=== PATIENT | female | born 1950 | race Caucasian/White ===

== ENCOUNTER → 2017-10-04 20:08 | Outpatient (CLI) | payer MEDICARE, SELFPAY | DX: G47.30 Sleep apnea, unspecified (principal) | CPT/HCPCS: 95811 ==

== ENCOUNTER → 2018-01-20 09:33 | Outpatient (CLI) | payer MEDICARE, SELFPAY ==
[2018-01-20 12:19] LABS: Erythrocyte Sedimentation Rate 14 mm/hr (0-30)
[2018-01-20 12:25] LABS: Absolute Lymphocyte Count 1.16 X10^3/ul (0.83-4.51); Absolute Neutrophil Count 2.6 X10^3/uL (2.0-7.7); Basophil# 0.04 X10^3/uL; Basophil% 0.9 % (0-1); Eosinophil# 0.18 X10^3/uL; Eosinophils% 4.2 % (0-5); Hematocrit 44.3 % (37-47); Hemoglobin 14.1 g/dl (12.0-15.0); Lymphocyte # 1.16 X10^3/ul (4.0); Lymphocyte % 27.3 % (19-41); Mean Corp Hgb Conc 31.8 g/gl (32-36); Mean Corpuscular Hgb 30.1 pg (27.0-32.0); Mean Corpuscular Volume 94.5 fL (81-99); Mean Platelet Vol. 10.9 fl (6.2-12.0); Monocyte# 0.25 X10^3/uL; Monocyte% 5.9 % (0-10); Neutrophil # 2.62 X10^3/uL (2.7-7.7); Neutrophil % 61.7 % (47-70); Platelet Count 210 K/mm3 (150-450); RBC Distribution Width CV 13.4 % (11.6-14.6); Red Blood Count 4.69 M/mm3 (4.2-5.4); White Blood Count 4.3 K/mm3 (4.4-11.0)
[2018-01-20 12:30] LABS: POSITIVE COUNT NO; POSITIVE DIFFERENTIAL NO; POSITIVE MORPHOLOGY NO
[2018-01-20 12:33] LABS: Hemoglobin A1c 5.8 % (4.2-6.3)
[2018-01-20 12:43] LABS: ALB/GLOB Ratio 1.1 RATIO (0.9-2.4); AST(SGOT) 42 U/L (15-37); Alanine Aminotransfer ALT/SGPT 56 U/L (13-56); Albumin, Serum 3.9 g/dL (3.2-5.0); Alkaline Phosphatase 98 U/L (45-117); Anion Gap 10 (5-15); BUN 21 mg/dL (7-18); BUN/Creat Ratio 28.2 RATIO (10-20); Calcium,Total 8.9 mg/dL (8.5-10.1); Chloride 105 mmol/L (98-107); Cholesterol 238 mg/dL (200); Creatinine, Serum 0.74 mg/dL (0.55-1.02); EST Glomerular Filtration Rate 82 mL/min (>60); Est Glom Filt Rate - Afr Amer 99 mL/min (>60); Globulin 3.5 g/dL (2.2-4.2); Glucose 99 mg/dL (74-106); High Density Lipoprotein 74 mg/dL; Phosphorus 3.8 mg/dL (2.5-4.9); Protein, Total 7.4 g/dL (6.4-8.2); Rheumatoid Factor < 10.0 IU/mL (<15); Sodium Level 143 mmol/L (136-145); Triglycerides 151 mg/dL; Very Low Density Lipoprotein 30 mg/dL (5-40)
[2018-01-21 10:19] LABS: Vitamin D,25 Hydroxy 32.8 ng/mL (29.95-100.01)
[2018-01-22 13:18] LABS: ANTINUCLEAR ANTIBODIES DIRECT Negative (Negative)
== END ==
PROVIDERS: Family Provider Family Medicine; PCP Family Medicine; Visit Provider Family Medicine
DX: M25.50 Pain in unspecified joint (principal); E78.5 Hyperlipidemia, unspecified; M85.80 Other specified disorders of bone density and structure, unspecified site; R73.02 Impaired glucose tolerance (oral)
CPT/HCPCS: 80053; 80061; 82306; 83036; 84100; 85025; 85652; 86038; 86431

== ENCOUNTER → 2018-02-25 13:55 | Outpatient (CLI) | payer MEDICARE, SELFPAY ==
[2018-02-25 16:10] LABS: ALB/GLOB Ratio 1.1 RATIO (0.9-2.4); AST(SGOT) 21 U/L (15-37); Alanine Aminotransfer ALT/SGPT 29 U/L (13-56); Albumin, Serum 3.9 g/dL (3.2-5.0); Alkaline Phosphatase 97 U/L (45-117); Anion Gap 10 (5-15); BUN 20 mg/dL (7-18); BUN/Creat Ratio 28.8 RATIO (10-20); Calcium,Total 8.9 mg/dL (8.5-10.1); Chloride 107 mmol/L (98-107); Creatinine, Serum 0.69 mg/dL (0.55-1.02); EST Glomerular Filtration Rate 89 mL/min (>60); Est Glom Filt Rate - Afr Amer 108 mL/min (>60); Globulin 3.5 g/dL (2.2-4.2); Glucose 97 mg/dL (74-106); Protein, Total 7.4 g/dL (6.4-8.2); Sodium Level 141 mmol/L (136-145)
[2018-02-27 13:33] LABS: HEPATITIS B SURFACE AG Negative (Negative); Hep B Surface Antibodies Reactive (.); Hep C Antibodies 0.3 s/co ratio (0.0-0.9)
== END ==
PROVIDERS: Family Provider Family Medicine; PCP Family Medicine; Visit Provider Family Medicine
DX: R94.5 Abnormal results of liver function studies (principal)
CPT/HCPCS: 36415; 80053; 86706; 86803; 87340

== ENCOUNTER → 2018-03-23 14:35 | Outpatient (CLI) | payer MEDICARE, SELFPAY ==
--- NOTE | 2018-03-23 14:39 | BI_ITS ---
MAMMOGRAPHY - BILATERAL SCREENING REASON FOR EXAM: Female, 67 years old. Routine annual screening examination. PERTINENT HISTORY: Sister with breast cancer. Grandmother with breast cancer. Remote right excisional breast biopsies. TECHNIQUE: Digital bilateral breast franki (3D mammographic acquisition) in the CC and MLO projections. 2-D mediolateral oblique (MLO) and craniocaudad (CC) views of both breasts were obtained. CAD: Full Field Digital Mammography with Computer Added Detection was performed. COMPARISON: Comparison is made with prior outside examination February 10, 2017. FINDINGS: Breast Composition: The breasts are heterogeneously dense, which may obscure small masses. There are no dominant masses or suspicious calcifications. Stable bilateral calcifications. No other significant abnormalities are identified. There has been no significant change since the prior study. BI/SCREENING MAMM (CAD), BILAT IMPRESSION: Stable bilateral screening mammogram. Yearly follow-up mammogram recommended. (A) ASSESSMENT CATEGORY: BIRADS Category 2: Benign. A letter regarding these results will be sent to the patient by the facility within 30 days. Approximately 10% of breast cancers are not detected by mammography. A normal mammogram should not delay biopsy of a clinically suspicious abnormality. [id number] Electronically Signed: Ryan Crockett MD at 12:51 EDT Tel [phone], Service support ,
== END ==
PROVIDERS: Family Provider Family Medicine; PCP Family Medicine; Referring Provider Family Medicine; Visit Provider Family Medicine
DX: Z12.31 Encounter for screening mammogram for malignant neoplasm of breast (principal)
CPT/HCPCS: 77063; 77067

== ENCOUNTER → 2018-03-25 13:58 | Outpatient (CLI) | payer MEDICARE, SELFPAY ==
[2018-03-25 16:43] LABS: Rubella IgG > 500.0 IU/mL
[2018-03-29 08:35] LABS: Mumps Antibody,IgG 54.4 AU/mL (Immune >10.9); Rubeola IgG Ab > 300.0 AU/mL (Immune >29.9)
== END ==
PROVIDERS: Family Provider Family Medicine; PCP Family Medicine; Visit Provider Family Medicine
DX: Z01.84 Encounter for antibody response examination (principal)
CPT/HCPCS: 36415; 86735; 86762; 86765

== ENCOUNTER → 2018-06-24 13:41 | Outpatient (CLI) | payer MEDICARE, SELFPAY ==
[2018-06-24 16:32] LABS: ALB/GLOB Ratio 1.1 RATIO (0.9-2.4); AST(SGOT) 27 U/L (15-37); Alanine Aminotransfer ALT/SGPT 40 U/L (13-56); Albumin, Serum 3.9 g/dL (3.2-5.0); Alkaline Phosphatase 119 U/L (45-117); Anion Gap 10 (5-15); BUN 21 mg/dL (7-18); BUN/Creat Ratio 29.3 RATIO (10-20); Calcium,Total 8.7 mg/dL (8.5-10.1); Chloride 106 mmol/L (98-107); Cholesterol 237 mg/dL (200); Creatinine, Serum 0.72 mg/dL (0.55-1.02); EST Glomerular Filtration Rate 86 mL/min (>60); Est Glom Filt Rate - Afr Amer 104 mL/min (>60); Globulin 3.4 g/dL (2.2-4.2); Glucose 126 mg/dL (74-106); High Density Lipoprotein 58 mg/dL; Potassium 3.9 mmol/L (3.5-5.1); Protein, Total 7.3 g/dL (6.4-8.2); Sodium Level 142 mmol/L (136-145); Triglycerides 441 mg/dL
[2018-06-24 16:41] LABS: Vitamin D,25 Hydroxy 23.3 ng/mL (29.95-100.01)
[2018-06-24 17:15] LABS: Hemoglobin A1c 6.1 % (4.2-6.3)
== END ==
PROVIDERS: Family Provider Family Medicine; PCP Family Medicine; Visit Provider Family Medicine
DX: E78.5 Hyperlipidemia, unspecified (principal); R73.02 Impaired glucose tolerance (oral); M85.80 Other specified disorders of bone density and structure, unspecified site
CPT/HCPCS: 36415; 80053; 80061; 82306; 83036

== ENCOUNTER → 2018-08-16 10:45 | Outpatient (CLI) | payer MEDICARE, SELFPAY ==
--- NOTE | 2018-08-16 10:57 | BD_ITS ---
STUDY: DUAL ENERGY X-RAY ABSORPTIOMETRY / DXA REASON FOR EXAM: Female, 67 years old. Early menopause. Loss of height. TECHNIQUE: Bone Mineral Density (BMD) measurements of lumbar spine and bilateral hips were obtained. COMPARISON: None. FINDINGS: Lumbar Spine (L1-L4): g/cm2 (0.890) / T-score (-2.4) / Z-score (-0.8) Findings are suggestive of osteopenia with a high fracture risk. Left Femur Total: g/cm2 (0.942) / T-score ( -0.5) / Z-score (0.9) Left Femoral Neck: g/cm2 (0.906) / T-score (-0.9) / Z-score (0.7) Right Femur Total: g/cm2 (0.918) / T-score (-0.7) / Z-score (0.7) Right Femoral Neck: g/cm2 (0.858) / T-score (-1.3) / Z-score (0.4) BD/Dexa Bone Density Study IMPRESSION: The patient is considered osteopenic as outlined below according to World Neeraj Organization (WHO) criteria with a high fracture risk. Reference Information: The T-score is the number of standard deviations above or below the standard which is normal for young adults at their peak bone mineral density. The World Health Organization (WHO) interprets the T-scores as follows: Above -1 Normal bone density Between -1 and -2.5 Osteopenia Equal to / or below -2.5 Osteoporosis As a practical clinical guideline, osteopenia may be graded as follows: Mild -1 through -1.5 Moderate -1.6 through -2.0 Severe -2.1 through -2.4 The Z-score is the number of standard deviations above or below age-matched controls. A Z-score of less than -1.5 would be considered abnormal. References: 1. NIH Osteoporosis and Related Bone Diseases http://www.osteo.org 2. International Society for Clinical Densitometry http://www.iscd.org 3. National Osteoporosis Foundation http://www.nof.org Electronically Signed: Ryan Crockett, at 11:05 EST , Service support ,
== END ==
PROVIDERS: Family Provider Family Medicine; PCP Family Medicine; Referring Provider Family Medicine; Visit Provider Family Medicine
DX: Z78.0 Asymptomatic menopausal state (principal); Z13.820 Encounter for screening for osteoporosis
CPT/HCPCS: 77080

== ENCOUNTER → 2018-11-21 | Outpatient (CLI) | payer MEDICARE, SELFPAY ==
[2018-11-21 17:52] LABS: ALB/GLOB Ratio 1.1 RATIO (0.9-2.4); AST(SGOT) 22 U/L (15-37); Alanine Aminotransfer ALT/SGPT 24 U/L (13-56); Albumin, Serum 3.7 g/dL (3.2-5.0); Alkaline Phosphatase 84 U/L (45-117); Anion Gap 9 (5-15); BUN 19 mg/dL (7-18); BUN/Creat Ratio 27.3 RATIO (10-20); Calcium,Total 8.5 mg/dL (8.5-10.1); Chloride 109 mmol/L (98-107); EST Glomerular Filtration Rate 88 mL/min (>60); Est Glom Filt Rate - Afr Amer 107 mL/min (>60); Globulin 3.4 g/dL (2.2-4.2); Glucose 95 mg/dL (74-106); Phosphorus 3.7 mg/dL (2.5-4.9); Potassium 4.1 mmol/L (3.5-5.1); Protein, Total 7.1 g/dL (6.4-8.2); Sodium Level 143 mmol/L (136-145)
[2018-11-21 18:44] LABS: Hemoglobin A1c 5.6 % (4.2-6.3)
== END | disposition home or self-care (01) ==
PROVIDERS: Family Provider Family Medicine; PCP Family Medicine; Visit Provider Family Medicine
DX: R73.02 Impaired glucose tolerance (oral) (principal); E55.9 Vitamin D deficiency, unspecified; M85.80 Other specified disorders of bone density and structure, unspecified site
CPT/HCPCS: 36415; 80053; 80061; 82306; 83036; 84100

== ENCOUNTER → 2019-03-03 10:08 | Outpatient (CLI) | payer MEDICARE, SELFPAY ==
[2019-03-03 12:58] LABS: ALB/GLOB Ratio 1.1 RATIO (0.9-2.4); AST(SGOT) 22 U/L (15-37); Alanine Aminotransfer ALT/SGPT 27 U/L (13-56); Albumin, Serum 3.7 g/dL (3.2-5.0); Alkaline Phosphatase 95 U/L (45-117); Anion Gap 3 (5-15); BUN 18 mg/dL (7-18); BUN/Creat Ratio 26.1 RATIO (10-20); Calcium,Total 8.7 mg/dL (8.5-10.1); Chloride 111 mmol/L (98-107); Cholesterol 211 mg/dL (200); Creatinine, Serum 0.69 mg/dL (0.55-1.02); EST Glomerular Filtration Rate 89 mL/min (>60); Est Glom Filt Rate - Afr Amer 108 mL/min (>60); Globulin 3.4 g/dL (2.2-4.2); Glucose 100 mg/dL (74-106); High Density Lipoprotein 77 mg/dL; Potassium 4.2 mmol/L (3.5-5.1); Protein, Total 7.1 g/dL (6.4-8.2); Sodium Level 141 mmol/L (136-145); Triglycerides 109 mg/dL; Very Low Density Lipoprotein 22 mg/dL (5-40)
[2019-03-03 13:10] LABS: Hemoglobin A1c 5.5 % (4.2-6.3)
[2019-03-03 13:19] LABS: Vitamin D,25 Hydroxy 35.6 ng/mL (29.95-100.01)
== END ==
PROVIDERS: Family Provider Family Medicine; PCP Family Medicine; Referring Provider Family Medicine; Visit Provider Family Medicine
DX: R73.02 Impaired glucose tolerance (oral) (principal); E55.9 Vitamin D deficiency, unspecified; M85.80 Other specified disorders of bone density and structure, unspecified site; E78.1 Pure hyperglyceridemia
CPT/HCPCS: 36415; 80053; 80061; 82306; 83036

== ENCOUNTER → 2019-03-24 14:33 | Outpatient (CLI) | payer MEDICARE, SELFPAY ==
--- NOTE | 2019-03-24 14:36 | BI_ITS ---
MAMMOGRAPHY - BILATERAL SCREENING REASON FOR EXAM: Female, 68 years old. Routine annual screening examination. PERTINENT HISTORY: Sister with breast cancer. Grandmother with breast cancer. TECHNIQUE: Digital bilateral breast tommy (3D mammographic acquisition) in the CC and MLO projections. 2-D mediolateral oblique (MLO) and craniocaudad (CC) views of both breasts were obtained. CAD: Full Field Digital Mammography with Computer Added Detection was performed. COMPARISON: Comparison is made with prior study March 23, 2018. FINDINGS: Breast Composition: The breasts are heterogeneously dense, which may obscure small masses. There are no dominant masses or suspicious calcifications. Stable scattered calcifications bilaterally. No other significant abnormalities are identified. There has been no significant change since the prior study. BI/SCREEN MAMM (CAD) W/TOMMY BILAT IMPRESSION: Stable bilateral screening mammogram. Yearly follow-up mammogram recommended. (A) ASSESSMENT CATEGORY: BIRADS Category 2: Benign. A letter regarding these results will be sent to the patient by the facility within 30 days. Approximately 10% of breast cancers are not detected by mammography. A normal mammogram should not delay biopsy of a clinically suspicious abnormality. [id number] Electronically Signed: Ryan Crockett, at 15:37 EDT , Service support ,
== END ==
PROVIDERS: Family Provider Family Medicine; PCP Family Medicine; Referring Provider Family Medicine; Visit Provider Family Medicine
DX: Z12.31 Encounter for screening mammogram for malignant neoplasm of breast (principal)
CPT/HCPCS: 77063; 77067

== ENCOUNTER → 2019-06-30 09:25 | Outpatient (CLI) | payer MEDICARE, SELFPAY ==
[2019-06-30 11:01] LABS: ALB/GLOB Ratio 1.3 RATIO (0.9-2.4); AST(SGOT) 22 U/L (15-37); Alanine Aminotransfer ALT/SGPT 25 U/L (13-56); Albumin, Serum 3.9 g/dL (3.2-5.0); Alkaline Phosphatase 99 U/L (45-117); Anion Gap 5 (5-15); BUN 23 mg/dL (7-18); BUN/Creat Ratio 33.8 RATIO (10-20); Calcium,Total 9.3 mg/dL (8.5-10.1); Chloride 109 mmol/L (98-107); Creatinine, Serum 0.68 mg/dL (0.55-1.02); EST Glomerular Filtration Rate 91 mL/min (>60); Est Glom Filt Rate - Afr Amer 110 mL/min (>60); Globulin 3.1 g/dL (2.2-4.2); Glucose 97 mg/dL (74-106); Potassium 4.2 mmol/L (3.5-5.1); Sodium Level 141 mmol/L (136-145)
[2019-06-30 11:05] LABS: Hemoglobin A1c 5.8 % (4.2-6.3)
== END ==
PROVIDERS: Family Provider Family Medicine; PCP Family Medicine; Referring Provider Family Medicine; Visit Provider Family Medicine
DX: R73.02 Impaired glucose tolerance (oral) (principal)
CPT/HCPCS: 36415; 80053; 83036

== ENCOUNTER → 2020-03-19 08:28 | Outpatient (CLI) | payer MEDICARE, SELFPAY ==
[2020-03-19 10:43] LABS: ALB/GLOB Ratio 1.1 RATIO (0.9-2.4); AST(SGOT) 19 U/L (15-37); Alanine Aminotransfer ALT/SGPT 23 U/L (13-56); Albumin, Serum 3.7 g/dL (3.2-5.0); Alkaline Phosphatase 100 U/L (45-117); Anion Gap 4 (5-15); BUN 20 mg/dL (7-18); BUN/Creat Ratio 25.1 RATIO (10-20); Calcium,Total 8.7 mg/dL (8.5-10.1); Chloride 110 mmol/L (98-107); EST Glomerular Filtration Rate 75 mL/min (>60); Est Glom Filt Rate - Afr Amer 91 mL/min (>60); Globulin 3.5 g/dL (2.2-4.2); Glucose 102 mg/dL (74-106); Protein, Total 7.2 g/dL (6.4-8.2); Sodium Level 141 mmol/L (136-145)
[2020-03-19 10:46] LABS: Vitamin D,25 Hydroxy 68.3 ng/mL
[2020-03-19 10:48] LABS: Hemoglobin A1c 5.6 % (3.8-5.6)
== END ==
PROVIDERS: PCP Family Medicine; Referring Provider Family Medicine; Visit Provider Family Medicine
DX: M85.80 Other specified disorders of bone density and structure, unspecified site (principal); R73.02 Impaired glucose tolerance (oral)
CPT/HCPCS: 36415; 80053; 82306; 83036; 84100

== ENCOUNTER → 2020-04-29 11:19 | Outpatient (CLI) | payer MEDICARE, SELFPAY ==
--- NOTE | 2020-04-29 11:21 | BI_ITS ---
MAMMOGRAPHY - BILATERAL SCREENING REASON FOR EXAM: Female, 69 years old. Routine annual screening examination. PERTINENT HISTORY: Sister with breast cancer. Grandmother with breast cancer. Remote right excisional breast biopsy. TECHNIQUE: Digital bilateral breast tommy (3D mammographic acquisition) in the CC and MLO projections. 2-D mediolateral oblique (MLO) and craniocaudad (CC) views of both breasts were obtained. CAD: Full Field Digital Mammography with Computer Added Detection was performed. COMPARISON: Comparison is made with prior examination dated 03/24/2019 and 03/23/2018. FINDINGS: Breast Composition: The breasts are heterogeneously dense, which may obscure small masses. There are no dominant masses or suspicious calcifications. Stable scattered bilateral calcifications. No other significant abnormalities are identified. There has been no significant change since the prior study. BI/SCREEN MAMM (CAD) W/TOMMY BILAT IMPRESSION: Stable bilateral screening mammogram. Yearly follow-up mammogram recommended. (A) ASSESSMENT CATEGORY: BIRADS Category 2: Benign. A letter regarding these results will be sent to the patient by the facility within 30 days. Approximately 10% of breast cancers are not detected by mammography. A normal mammogram should not delay biopsy of a clinically suspicious abnormality. [id number] Electronically Signed: Ryan Crockett, at 15:43 EST , Service support ,
== END ==
PROVIDERS: PCP Family Medicine; Referring Provider Family Medicine; Visit Provider Family Medicine
DX: Z12.31 Encounter for screening mammogram for malignant neoplasm of breast (principal); Z80.3 Family history of malignant neoplasm of breast
CPT/HCPCS: 77063; 77067

== ENCOUNTER → 2020-09-19 08:24 | Outpatient (CLI) | payer MEDICARE, SELFPAY ==
[2020-09-19 10:42] LABS: Hemoglobin A1c 5.6 % (3.8-5.6)
[2020-09-19 10:45] LABS: Vitamin D,25 Hydroxy 42.4 ng/mL
[2020-09-19 10:46] LABS: ALB/GLOB Ratio 1.2 RATIO (0.9-2.4); AST(SGOT) 22 U/L (15-37); Alanine Aminotransfer ALT/SGPT 22 U/L (13-56); Albumin, Serum 3.9 g/dL (3.2-5.0); Alkaline Phosphatase 94 U/L (45-117); Anion Gap 7 (5-15); BUN 18 mg/dL (7-18); Calcium,Total 8.9 mg/dL (8.5-10.1); Chloride 106 mmol/L (98-107); Cholesterol 204 mg/dL (200); Creatinine, Serum 0.75 mg/dL (0.55-1.02); EST Glomerular Filtration Rate 81 mL/min (>60); Est Glom Filt Rate - Afr Amer 98 mL/min (>60); Globulin 3.2 g/dL (2.2-4.2); Glucose 95 mg/dL (74-106); High Density Lipoprotein 86 mg/dL; Potassium 3.7 mmol/L (3.5-5.1); Protein, Total 7.1 g/dL (6.4-8.2); Sodium Level 142 mmol/L (136-145); Triglycerides 104 mg/dL; Very Low Density Lipoprotein 21 mg/dL (5-40)
== END ==
PROVIDERS: PCP Family Medicine; Referring Provider Family Medicine; Visit Provider Family Medicine
DX: M85.80 Other specified disorders of bone density and structure, unspecified site (principal); E78.5 Hyperlipidemia, unspecified; R73.02 Impaired glucose tolerance (oral)
CPT/HCPCS: 36415; 80053; 80061; 82306; 83036; 84100

== ENCOUNTER → 2020-10-17 09:02 | Outpatient (CLI) | payer MEDICARE, SELFPAY ==
--- NOTE | 2020-10-17 09:05 | BD_ITS ---
STUDY: DUAL ENERGY X-RAY ABSORPTIOMETRY / DXA REASON FOR EXAM: Female, 69 years old. 733.90OsteopeniaBONE DENSITY REASON FOR EXAM TECHNIQUE: Bone Mineral Density (BMD) measurements of lumbar spine and bilateral hips were obtained. COMPARISON: Comparison is made with prior study dated 08/16/2018. FINDINGS: Lumbar Spine (L1-L4): g/cm2 (0.877) / T-score (-2.5) / Z-score (-0.8) Findings are suggestive of osteopenia with a high fracture risk. Increased kyphosis. Left Femur Total: g/cm2 (0.908) / T-score (-0.8) / Z-score (0.8) Left Femoral Neck: g/cm2 (0.859) / T-score (-1.3) / Z-score (0.5) Right Femur Total: g/cm2 (0.883) / T-score (-1.0) / Z-score (0.6) Right Femoral Neck: g/cm2 (0.898) / T-score (-1.0) / Z-score (0.8) The T-Scores on the most recent prior examination were: Lumbar Spine (L1-L4): There has been worsening of bone density since the previous examination. Left Femur Total: which represents a worsening of 3.6%. Right Femur Total: which represents a worsening of 3.8%. BD/Dexa Bone Density Study IMPRESSION: The patient is considered osteopenic as outlined below according to World Neeraj Organization (WHO) criteria with a high fracture risk. There has been worsening of bone density since the previous examination. Reference Information: The T-score is the number of standard deviations above or below the standard which is normal for young adults at their peak bone mineral density. The World Health Organization (WHO) interprets the T-scores as follows: Above -1 Normal bone density Between -1 and -2.5 Osteopenia Equal to / or below -2.5 Osteoporosis As a practical clinical guideline, osteopenia may be graded as follows: Mild -1 through -1.5 Moderate -1.6 through -2.0 Severe -2.1 through -2.4 The Z-score is the number of standard deviations above or below age-matched controls. A Z-score of less than -1.5 would be considered abnormal. References: 1. NIH Osteoporosis and Related Bone Diseases www osteo.org 2. International Society for Clinical Densitometry www iscd.org 3. National Osteoporosis Foundation www nof.org Electronically Signed: Ryan Crockett MD at 14:03 EDT , Service support ,
== END ==
PROVIDERS: PCP Family Medicine; Referring Provider Family Medicine; Visit Provider Family Medicine
DX: M85.89 Other specified disorders of bone density and structure, multiple sites (principal)
CPT/HCPCS: 77080

== ENCOUNTER → 2020-12-27 10:56 | Outpatient (CLI) | payer MEDICARE, SELFPAY ==
--- NOTE | 2020-12-27 10:58 | RAD_ITS ---
STUDY: X-RAY - LEFT SHOULDER REASON FOR EXAM: Female, 70 years old. PAIN TECHNIQUE: 4 view(s) of the shoulder. COMPARISON: None. FINDINGS: Normal glenohumeral articulation. There is degenerative arthrosis of the acromioclavicular joint without inferior osseous spur formation. Normal acromion. Normal humeral head and visualized proximal humerus. The soft tissue structures are unremarkable. Normal visualized pulmonary apex. RAD/Shoulder min 2 Views IMPRESSION: Mild degree of degenerative changes of the acromioclavicular joint. Electronically Signed: Ryan Crockett MD at 15:23 EDT , Service support ,
== END ==
PROVIDERS: PCP Family Medicine; Referring Provider Family Medicine; Visit Provider Family Medicine
DX: M25.512 Pain in left shoulder (principal)
CPT/HCPCS: 73030

== ENCOUNTER 2021-02-05 14:00 | Outpatient (RCR) | payer MEDICARE, SELFPAY ==
--- NOTE | 2021-01-02 14:54 | HP.PTEVAL ---
Patient's Visit Information NAHUM LUNA is a 70 year old F referred to Physical Therapy by Dr. Masood Das MD with a diagnosis of Left Lateral Epicondylitis. Date of Evaluation: 01/02/21 Physical Therapist: Emilia Johnson DPT - Visit Plan Frequency: 2x /Week Duration: 4 Weeks Plan: Ultrasound- manual-flexibility- eccentric exercises as tolerated. HEP Given IE: Wrist Flexion and Extension with elbow extended - Subjective Patient reports that for about a month she had pain from her shoulder to her wrist on the left side. Wednesday she had an injection in the left shoulder which has cleared out her shoulder but her elbow is still bothering her. Pain is located on the lateral epicondyle that radiates slightly into the bicep and into the brachioradialis. Describes the pain as intense fire burning pain. Worst: 12/28 Agg: Fosomax- terrible reaction- so she increased weights while working out, computer work Best: 06/30 Eases: Advil, rest, ice if she does it above. No N/T in the hands- No issues with finger dexterity or manager management strength. Right hand dominate. She had a stiff neck with the Fosomax but still has diminished mobility- end of October was the Fosomax. No HAQUE, blurred vision, dizziness or lightheadedness. Current pain level: 2/10. Sleep: wakes her up and hard to get comfortable- side sleeper. Very active during the day walk 30-45 minutes and weights when she can- prior to COVID she was working out in the gym- would like to get back to coming back in here. PMHx: osteoporosis, Right RTC repair 2009 Meds: metformin - Objective Posture: FH, RS can correct with verbal and tacile cues but does not maintain. Gait: good arm swing and trunk rotation. Palpation: tender along medial and lateral epicondyle and into the brachioradialis. ROM: WFL in all planes of the cervical and UE- does have disomfort with full extension and flexion of the left elbow. 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 Special Test: Extension of elbow: wrist flexion and extension- pain with flexion only - Goals Goal 1:: Patient will be I with HEP and progression Goal Time Frame: 4-6 Weeks Goal 2:: Patient will be report no pain for 1 week in left elbow Goal Time Frame: 4-6 Weeks Goal 3:: Patient will demo 5/5 strength in left UE Goal Time Frame: 4-6 Weeks - Rehabilitation Potential Physical Therapy Diagnosis: Patient presents with hypomobility- she has decrease pain free ROM, strength, flex and muscular endurance leading to increased pain with ADL's. - Anticipated Interventions Patient/Client Instruction: Educate patient on: Benefits of Fitness Program Therapeutic Exercise to Include: Strength training, Endurance training, Body mechanics, Postural training, Flexibilty training, Passive ROM, Active ROM, Dynamic Lumbar Stabilization, Scapular Strength/Stabilization For the Purpose of:: To improve muscle performance and motor function Manual Therapy Techniques to Include: Functional dry needling, Soft tissue mobilization Ultrasound (thermal/non thermal): Yes Thank you for the opportunity to evaluate your patient. For Medicare and Medicare HMO plans, please review the plan of care and approve it. It will need to be FAXED BACK to us at [phone] for Medicare purposes. For Medicare only, by signing this I certify the plan of care. Please let me know if there are questions or concerns regarding this plan of care. Physician Signature: Date:
--- NOTE | 2021-02-05 14:09 | HP.PTDCSUM ---
It has been my pleasure to treat NAHUM LUNA referred by Dr. Masood Das MD, with the diagnosis of Left Lateral Epicondylitis for a total of 10 visit(s). Discharge Date: 02/05/21 Please see the following information for a summary of their discharge status. Subjective: No pain left, none lately. Pain is 0 down from 8/10. Activities are pretty normal. No advil for a week. Some pressure to lat epicondyle can be tender but can lift and move. Sleeping OK. Sewing adn knitting going OK, Guitar is fine. HEP of stretches, and strengthening for wrist. L elbow Pain Intensity (Out of 10): 0 % Improvement: 99 Objective/Function: Full aROM L wrist adn elbow adn 5/5 strength . Very little tenderness. Overall much better. Goal 1:: Patient will be I with HEP and progression Goal Progress: Goal Met Goal 2:: Patient will be report no pain for 1 week in left elbow Goal Progress: Goal Met Goal 3:: Patient will demo 5/5 strength in left UE Goal Progress: Goal Met Plan: d/c If there are questions or concerns regarding this patient's physical therapy, please feel free to call me at [phone]. Thank you for the referral of this patient. Sincerely, Reed Sibley, DPT, OCS, CSCS Balance/Gait/Functional tests - Balance/Special Test Scores Quick DASH Score: 0
== END 2021-02-05 14:15 | disposition home or self-care (01) ==
LOC: PT 14:00
PROVIDERS: PCP Family Medicine; Referring Provider Family Medicine; Visit Provider Family Medicine
DX: M77.12 Lateral epicondylitis, left elbow (principal)
CPT/HCPCS: 97035; 97110; 97140; 97161; 97164

== ENCOUNTER → 2021-04-22 08:14 | Outpatient (CLI) | payer MEDICARE, SELFPAY ==
[2021-04-22 10:09] LABS: Vitamin D,25 Hydroxy 48.2 ng/mL
[2021-04-22 10:12] LABS: Hemoglobin A1c 5.6 % (3.8-5.6)
[2021-04-22 10:15] LABS: AST(SGOT) 27 U/L (15-37); Alanine Aminotransfer ALT/SGPT 28 U/L (13-56); Albumin, Serum 3.6 g/dL (3.2-5.0); Alkaline Phosphatase 73 U/L (45-117); Anion Gap 6 (5-15); BUN 26 mg/dL (7-18); BUN/Creat Ratio 34.5 RATIO (10-20); Calcium,Total 9.6 mg/dL (8.5-10.1); Chloride 106 mmol/L (98-107); Cholesterol 230 mg/dL (200); Creatinine, Serum 0.75 mg/dL (0.55-1.02); EST Glomerular Filtration Rate 80 mL/min (>60); Est Glom Filt Rate - Afr Amer 97 mL/min (>60); Globulin 3.7 g/dL (2.2-4.2); Glucose 100 mg/dL (74-106); High Density Lipoprotein 93 mg/dL; Protein, Total 7.3 g/dL (6.4-8.2); Sodium Level 140 mmol/L (136-145); Triglycerides 101 mg/dL; Very Low Density Lipoprotein 20 mg/dL (5-40)
== END ==
PROVIDERS: PCP Family Medicine; Referring Provider Family Medicine; Visit Provider Family Medicine
DX: M81.0 Age-related osteoporosis without current pathological fracture (principal); E78.5 Hyperlipidemia, unspecified; R73.02 Impaired glucose tolerance (oral)
CPT/HCPCS: 36415; 80053; 80061; 82306; 83036

== ENCOUNTER → 2021-05-29 09:37 | Outpatient (CLI) | payer MEDICARE, SELFPAY ==
--- NOTE | 2021-05-29 09:40 | BI_ITS ---
MAMMOGRAPHY - BILATERAL SCREENING REASON FOR EXAM: Female, 70 years old. Routine annual screening examination. PERTINENT HISTORY: Sister with breast cancer. Grandmother with breast cancer. Remote right excisional breast biopsy. TECHNIQUE: Digital bilateral breast tommy (3D mammographic acquisition) in the CC and MLO projections. 2-D mediolateral oblique (MLO) and craniocaudad (CC) views of both breasts were obtained. CAD: Full Field Digital Mammography with Computer Added Detection was performed. COMPARISON: Comparison is made with prior study dated 04/29/2020 and 03/24/2019. FINDINGS: Breast Composition: The breasts are heterogeneously dense, which may obscure small masses. There are no dominant masses or suspicious calcifications. Stable scattered bilateral macrocalcifications. No other significant abnormalities are identified. There has been no significant change since the prior study. BI/SCRN MAMM (CAD)W/TOMMY BILAT IMPRESSION: Stable bilateral screening mammogram. Yearly follow-up mammogram recommended. (A) ASSESSMENT CATEGORY: BIRADS Category 2: Benign. A letter regarding these results will be sent to the patient by the facility within 30 days. Approximately 10% of breast cancers are not detected by mammography. A normal mammogram should not delay biopsy of a clinically suspicious abnormality. [id number] Electronically Signed: Ryan Crockett MD at 10:43 EST , Service support ,
== END ==
PROVIDERS: PCP Family Medicine; Referring Provider Family Medicine; Visit Provider Family Medicine
DX: Z12.31 Encounter for screening mammogram for malignant neoplasm of breast (principal)
CPT/HCPCS: 77063; 77067

== ENCOUNTER 2021-10-06 08:04 | Outpatient (CLI) | payer MEDICARE, SELFPAY ==
[2021-10-06 10:05] LABS: Absolute Lymphocyte Count 1.15 X10^3/uL (0.83-4.51); Basophil# 0.06 X10^3/uL; Basophil% 1.7 % (0-1); Eosinophil# 0.12 X10^3/uL; Eosinophils% 3.4 % (0-5); Hematocrit 43.5 % (37-47); Hemoglobin 13.9 g/dL (12.0-15.0); Lymphocyte # 1.15 X10^3/ul (0.83-4.51); Lymphocyte % 32.6 % (19-41); Mean Corpuscular Hgb 29.4 pg (27.0-32.0); Mean Corpuscular Volume 92.2 fL (81-99); Mean Platelet Vol. 10.7 fl (6.2-12.0); Monocyte# 0.23 X10^3/uL; Monocyte% 6.5 % (0-10); NRBC Flagged by Analyzer 0 % (0-5); Neutrophil # 1.96 X10^3/uL (2.7-7.7); Neutrophil % 55.5 % (47-70); Platelet Count 192 K/mm3 (150-450); RBC Distribution Width CV 12.7 % (11.6-14.6); RBC Distribution Width SD 43.3 fl (35.1-43.9); Red Blood Count 4.72 M/mm3 (4.2-5.4); White Blood Count 3.5 K/mm3 (4.4-11.0)
[2021-10-06 10:17] LABS: ALB/GLOB Ratio 1.1 RATIO (0.9-2.4); AST(SGOT) 21 U/L (15-37); Alanine Aminotransfer ALT/SGPT 21 U/L (13-56); Alkaline Phosphatase 80 U/L (45-117); Anion Gap 7 (5-15); BUN 22 mg/dL (7-18); BUN/Creat Ratio 29.7 RATIO (10-20); Calcium,Total 9.1 mg/dL (8.5-10.1); Chloride 106 mmol/L (98-107); Cholesterol 221 mg/dL (200); Creatinine, Serum 0.74 mg/dL (0.55-1.02); EST Glomerular Filtration Rate 82 mL/min (>60); Est Glom Filt Rate - Afr Amer 99 mL/min (>60); Globulin 3.6 g/dL (2.2-4.2); Glucose 99 mg/dL (74-106); High Density Lipoprotein 87 mg/dL; Potassium 3.6 mmol/L (3.5-5.1); Protein, Total 7.6 g/dL (6.4-8.2); Sodium Level 140 mmol/L (136-145); Triglycerides 85 mg/dL; Very Low Density Lipoprotein 17 mg/dL (5-40)
[2021-10-06 10:19] LABS: Vitamin D,25 Hydroxy 60.4 ng/mL
[2021-10-06 10:23] LABS: Hemoglobin A1c 5.7 % (3.8-5.6)
== END 2021-10-06 23:59 | disposition home or self-care (01) ==
LOC: MTLAB 08:07
PROVIDERS: PCP Family Medicine; Referring Provider Family Medicine; Visit Provider Family Medicine
DX: E78.5 Hyperlipidemia, unspecified (principal); R73.02 Impaired glucose tolerance (oral); E55.9 Vitamin D deficiency, unspecified
CPT/HCPCS: 36415; 80053; 80061; 82306; 83036; 85025

== ENCOUNTER → 2021-10-27 | Outpatient (CLI) | payer MEDICARE, SELFPAY ==
--- NOTE | 2021-10-27 11:35 | RAD_ITS ---
STUDY: X-RAY - CERVICAL SPINE REASON FOR EXAM: Female, 70 years old. PAIN TECHNIQUE: 2 view(s) of the cervical spine were obtained. COMPARISON: None FINDINGS: Odontoid is obscured by overlapping osseous structures on the AP view. The odontoid appears thinned on the lateral view but no odontoid fracture is noted. Normal cervical lordosis. Slight degenerative anterior subluxation of C4 on C5. Slight degenerative anterior subluxation of C7 on T1 and of T1-T2. Severe degenerative disc space narrowing at the C5/6 and C6/7 levels with endplate sclerosis, small marginal osteophytes, minimal vacuum disc phenomenon, and uncinate hypertrophy. Extensive cervical facet arthritis. No facet dislocation. No compression fracture or precervical soft tissue swelling. On the AP view, a 9 mm lobulated calcification is projected in the left submandibular region, possibly a sialolith versus vascular calcification. Visualized upper lungs are clear. Visualized upper ribs are intact. The visualized paranasal sinuses are clear. Epiglottis appears normal. RAD/Cerv Spine 2 or 3 Views IMPRESSION: Extensive cervical degenerative changes. No compression fracture or precervical soft tissue swelling. 9 millimeter lobulated calcification noted in the left submandibular region on the AP view, possibly a sialolith versus atherosclerotic vascular calcification. Electronically Signed: Francois Arvizu MD at 5:39 EDT ,
== END | disposition home or self-care (01) ==
LOC: MTRAD 11:34
PROVIDERS: PCP Family Medicine; Referring Provider Family Medicine; Visit Provider Family Medicine
DX: M54.2 Cervicalgia (principal)
CPT/HCPCS: 72040

== ENCOUNTER → 2021-11-05 | Outpatient (CLI) | payer MEDICARE, SELFPAY ==
--- NOTE | 2021-11-05 10:25 | BD_ITS ---
STUDY: DUAL ENERGY X-RAY ABSORPTIOMETRY / DXA REASON FOR EXAM: Female, 70 years old. 733.00OsteoporosisBONE DENSITY REASON FOR EXAM TECHNIQUE: Bone Mineral Density (BMD) measurements of lumbar spine and bilateral hips were obtained. COMPARISON: Comparison is made with prior study dated 10/17/2020. FINDINGS: Lumbar Spine (L1-L4): g/cm2 (0.761) / T-score (-2.6) / Z-score (-0.3) Findings are suggestive of osteoporosis with a high fracture risk. Left Femur Total: g/cm2 (0.871) / T-score (-0.6) / Z-score (1.1) Left Femoral Neck: g/cm2 (0.772) / T-score (-0.7) / Z-score (1.3) Right Femur Total: g/cm2 (0.853) / T-score (-0.7) / Z-score (0.9) Right Femoral Neck: g/cm2 (0.802) / T-score (-0.4) / Z-score (1.5) The T-Scores on the most recent prior examination were: Lumbar Spine (L1-L4): There has been worsening of bone density since the previous examination. Left Femur Total: which represents an improvement of 3.1%. Right Femur Total: which represents an improvement of 4%. BD/Dexa Bone Density Study IMPRESSION: The patient is considered osteoporotic as outlined below according to World Neeraj Organization (WHO) criteria with a high fracture risk. There has been improvement of bone density since the previous examination. Reference Information: The T-score is the number of standard deviations above or below the standard which is normal for young adults at their peak bone mineral density. The World Health Organization (WHO) interprets the T-scores as follows: Above -1 Normal bone density Between -1 and -2.5 Osteopenia Equal to / or below -2.5 Osteoporosis As a practical clinical guideline, osteopenia may be graded as follows: Mild -1 through -1.5 Moderate -1.6 through -2.0 Severe -2.1 through -2.4 The Z-score is the number of standard deviations above or below age-matched controls. A Z-score of less than -1.5 would be considered abnormal. References: 1. NIH Osteoporosis and Related Bone Diseases www osteo.org 2. International Society for Clinical Densitometry www iscd.org 3. National Osteoporosis Foundation www nof.org Electronically Signed: Ryan Crockett MD at 15:40 EDT ,
== END | disposition home or self-care (01) ==
LOC: OPBD 10:38
PROVIDERS: PCP Family Medicine; Referring Provider Family Medicine; Visit Provider Family Medicine
DX: M81.0 Age-related osteoporosis without current pathological fracture (principal)
CPT/HCPCS: 77080

== ENCOUNTER → 2021-12-29 | Outpatient (CLI) | payer MEDICARE, SELFPAY ==
[2021-12-29 09:52] LABS: Absolute Lymphocyte Count 1.25 X10^3/uL (0.83-4.51); Absolute Neutrophil Count 1.9 X10^3/uL (2.0-7.7); Basophil# 0.07 X10^3/uL; Basophil% 1.9 % (0-1); Eosinophil# 0.21 X10^3/uL; Eosinophils% 5.7 % (0-5); Hematocrit 44.4 % (37-47); Hemoglobin 13.9 g/dL (12.0-15.0); Lymphocyte # 1.25 X10^3/ul (0.83-4.51); Lymphocyte % 33.8 % (19-41); Mean Corp Hgb Conc 31.3 g/dL (32-36); Mean Corpuscular Volume 95.7 fL (81-99); Mean Platelet Vol. 11.3 fl (6.2-12.0); Monocyte# 0.26 X10^3/uL; NRBC Flagged by Analyzer 0 % (0-5); Neutrophil # 1.91 X10^3/uL (2.7-7.7); Neutrophil % 51.6 % (47-70); Platelet Count 187 K/mm3 (150-450); RBC Distribution Width CV 12.9 % (11.6-14.6); RBC Distribution Width SD 46.2 fl (35.1-43.9); Red Blood Count 4.64 M/mm3 (4.2-5.4); White Blood Count 3.7 K/mm3 (4.4-11.0)
[2021-12-29 10:15] LABS: Hemoglobin A1c 5.8 % (3.8-5.6); Vitamin D,25 Hydroxy 40.1 ng/mL
[2021-12-29 10:26] LABS: ALB/GLOB Ratio 1.1 RATIO (0.9-2.4); AST(SGOT) 29 U/L (15-37); Alanine Aminotransfer ALT/SGPT 27 U/L (13-56); Albumin, Serum 3.9 g/dL (3.2-5.0); Alkaline Phosphatase 92 U/L (45-117); Anion Gap 7 (5-15); BUN 27 mg/dL (7-18); BUN/Creat Ratio 34.9 RATIO (10-20); Calcium,Total 9.1 mg/dL (8.5-10.1); Chloride 105 mmol/L (98-107); Cholesterol 250 mg/dL (200); Creatinine, Serum 0.77 mg/dL (0.55-1.02); EST Glomerular Filtration Rate 78 mL/min (>60); Est Glom Filt Rate - Afr Amer 94 mL/min (>60); Globulin 3.4 g/dL (2.2-4.2); Glucose 109 mg/dL (74-106); High Density Lipoprotein 84 mg/dL; Potassium 4.1 mmol/L (3.5-5.1); Protein, Total 7.3 g/dL (6.4-8.2); Sodium Level 141 mmol/L (136-145); Triglycerides 73 mg/dL; Very Low Density Lipoprotein 15 mg/dL (5-40)
== END | disposition home or self-care (01) ==
PROVIDERS: PCP Family Medicine; Referring Provider Family Medicine; Visit Provider Family Medicine
DX: M81.0 Age-related osteoporosis without current pathological fracture (principal); E78.5 Hyperlipidemia, unspecified; R73.02 Impaired glucose tolerance (oral)
CPT/HCPCS: 36415; 80053; 80061; 82306; 83036; 85025

== ENCOUNTER → 2022-01-22 | Outpatient (CLI) | payer MEDICARE, SELFPAY ==
--- NOTE | 2022-01-22 07:44 | CDU_ITS ---
Reason For Study: calcification of artery Rt. Velocities/BP Lt. Velocities/BP Prox CCA 103.4/23.9 cm/sec. Prox CCA 104.7/17.9 cm/sec. Mid CCA 82.6/21.3 cm/sec. Mid CCA 99.2/25.6 cm/sec. Dist CCA 83.9/20.0 cm/sec. Dist CCA 94.8/24.5 cm/sec. Prox ICA 86.5/13.4 cm/sec. Prox ICA 59.7/14.6 cm/sec. Mid ICA 78.6/23.9 cm/sec. Mid ICA 97.0/25.6 cm/sec. Dist ICA 82.6/27.8 cm/sec. Dist ICA 104.7/31.6 cm/sec. Rt. ICA/CCA = 1.0. Lt. ICA/CCA = 1.1. Prox ECA 72.1/8.2 cm/sec. Prox ECA 73.9/10.2 cm/sec. Rt. Vert. 44.7/14.5 cm/sec. Lt. Vert. 56.4/12.4 cm/sec. Right Extracranial There is intimal thickening but no significant atherosclerotic plaque noted in the right common carotid artery. There is heterogeneous, irregular atherosclerotic plaque noted in the right internal carotid artery. There is intimal thickening but no significant atherosclerotic plaque noted in the right external carotid artery. Antegrade flow is noted in the right vertebral artery. Left Extracranial There is intimal thickening but no significant atherosclerotic plaque noted in the left common carotid artery. There is intimal thickening but no significant atherosclerotic plaque noted in the left internal carotid artery. There is intimal thickening but no significant atherosclerotic plaque noted in the left external carotid artery. Antegrade flow is noted in the left vertebral artery. Procedure Carotid Duplex [id number]. This is a Carotid Duplex examination using B-mode, color flow and specral Doppler. The exam was diagnostic. Exam performed in department. VL/Carotid Duplex Ultrasound Interpretation Summary Mild (<50%) stenosis right extracranial internal carotid. No significant athero sclerotic plaque or stenosis noted in the left internal carotid artery. Flow within the vertebral a rteries is antegrade bilaterally. Ordering Physician: Emilia Castillo Performed By: Robin Van RVT
== END | disposition home or self-care (01) ==
LOC: CVS 07:42
PROVIDERS: PCP Family Medicine; Referring Provider Nurse Practitioner Family; Visit Provider Nurse Practitioner Family
DX: I70.90 Unspecified atherosclerosis (principal); I65.21 Occlusion and stenosis of right carotid artery
CPT/HCPCS: 93880

== ENCOUNTER → 2022-02-27 | Outpatient (CLI) | payer MEDICARE, SELFPAY ==
[2022-02-27 13:55] VITALS: BP 149/72; PULSE 76; RESP 16; TEMP 36; O2SAT 99; BMI 26.2
[2022-02-27] MEDS: 0.9% NaCl IVPB Med Flush (250 mL) 15 ML IV (14:04)
[2022-02-27] MEDS: 0.9% NaCl Peripheral Flush Adult/Peds IV (14:05)
[2022-02-27] MEDS: Zoledronic Acid 5 MG 100 ML 300 MG IV (14:05)
[2022-02-27 14:46] VITALS: BP 136/72; PULSE 69
== END | disposition home or self-care (01) ==
LOC: MEDOUTP 13:26
PROVIDERS: PCP Family Medicine; Referring Provider Internal Medicine Endocrinology, Diabetes & Metabolism; Visit Provider Internal Medicine Endocrinology, Diabetes & Metabolism
DX: M81.0 Age-related osteoporosis without current pathological fracture (principal)
CPT/HCPCS: 96365; J7050; A4216; J3489

== ENCOUNTER → 2022-03-27 | Outpatient (CLI) | payer MEDICARE, SELFPAY ==
[2022-03-27 09:37] LABS: Absolute Neutrophil Count 2.4 X10^3/uL (2.0-7.7); Basophil# 0.06 X10^3/uL; Basophil% 1.4 % (0-1); Eosinophil# 0.19 X10^3/uL; Eosinophils% 4.5 % (0-5); Hematocrit 43.5 % (37-47); Hemoglobin 13.5 g/dL (12.0-15.0); Lymphocyte % 30.9 % (19-41); Mean Corpuscular Hgb 29.7 pg (27.0-32.0); Mean Corpuscular Volume 95.8 fL (81-99); Mean Platelet Vol. 10.7 fl (6.2-12.0); Monocyte# 0.26 X10^3/uL; Monocyte% 6.2 % (0-10); NRBC Flagged by Analyzer 0 % (0-5); Neutrophil # 2.39 X10^3/uL (2.7-7.7); Neutrophil % 56.8 % (47-70); Platelet Count 210 K/mm3 (150-450); RBC Distribution Width CV 13.3 % (11.6-14.6); RBC Distribution Width SD 47.6 fl (35.1-43.9); Red Blood Count 4.54 M/mm3 (4.2-5.4); White Blood Count 4.2 K/mm3 (4.4-11.0)
[2022-03-27 10:02] LABS: AST(SGOT) 24 U/L (15-37); Alanine Aminotransfer ALT/SGPT 27 U/L (13-56); Albumin, Serum 3.6 g/dL (3.2-5.0); Alkaline Phosphatase 91 U/L (45-117); Anion Gap 9 (5-15); BUN 19 mg/dL (7-18); BUN/Creat Ratio 26.3 RATIO (10-20); Calcium,Total 9.3 mg/dL (8.5-10.1); Chloride 106 mmol/L (98-107); Cholesterol 238 mg/dL (200); Creatinine, Serum 0.72 mg/dL (0.55-1.02); EST Glomerular Filtration Rate 84 mL/min (>60); Est Glom Filt Rate - Afr Amer 102 mL/min (>60); Globulin 3.6 g/dL (2.2-4.2); Glucose 107 mg/dL (74-106); High Density Lipoprotein 86 mg/dL; Magnesium 1.9 mg/dL (1.6-2.6); Potassium 4.1 mmol/L (3.5-5.1); Protein, Total 7.2 g/dL (6.4-8.2); Sodium Level 142 mmol/L (136-145); Triglycerides 75 mg/dL; Very Low Density Lipoprotein 15 mg/dL (5-40)
[2022-03-27 10:13] LABS: Hemoglobin A1c 5.8 % (3.8-5.6); Vitamin D,25 Hydroxy 36.9 ng/mL
== END | disposition home or self-care (01) ==
LOC: MTLAB 07:59
PROVIDERS: PCP Family Medicine; Referring Provider Family Medicine; Visit Provider Family Medicine
DX: R73.02 Impaired glucose tolerance (oral) (principal); M81.0 Age-related osteoporosis without current pathological fracture; E78.5 Hyperlipidemia, unspecified
CPT/HCPCS: 36415; 80053; 80061; 82306; 83036; 83735; 85025

== ENCOUNTER 2022-05-11 13:00 | Outpatient (RCR) | payer MEDICARE, SELFPAY ==
--- NOTE | 2022-02-26 10:56 | HP.PTEVAL_ITS ---
Patient's Visit Information NAHUM LUNA is a 71 year old F referred to Physical Therapy by SURJIT Red with a diagnosis of OCCIPITAL NEURALGIA, CERVICAL SPOND/DDD/STENOSIS/RAD. Date of Evaluation: 02/26/22 Physical Therapist: Eugenie Nelson PT, Cert MDT - Visit Plan Frequency: 2-3x /Week Duration: 4-6 Weeks Plan: CP OR MH TO NECK NEEDED. STM TO SULMA CERVICAL MUSCULATURE. POSTURE CORRECTION/STRENGTHENING, INSTRUCTION IN APPROPRIATE BODY MECHANICS AND ACTIVITY MODIFICATIONS. SULMA UE ROM, STRETCHING AND STRENGTHENING. HEP INSTRUCTION. - Subjective Work/Leisure: RETIRED. Present symptoms: SULMA NECK PAIN. SULMA UE BRIEF I NTERMITTENT TINGLING FROM THE ELBOW DOWN TO THE FINGERS - USUALLY OCCURS SULMA AT THE SAME TIME. HEADACHES - SOMETIMES DAILY. Present since: OCTOBER 2020. Pain Scale: Worst - 5/10 Least - 1/10. Currently: 09/28. Commenced as a result of: NO APPARENT REASON OTHER THAN GETTING ILL AND EXTREME VOMITING FROM STARTING FOSOMAX. Symptoms at onset: STIFF NECK. Worse: TRYING TO READ THROUGH BOTTOM OF TRIFOCAL GLASSESS, DRYING HAIR, BRUSHING TEETH, GESTURING WITH HEAD DURING CONVERSATIONS SHOOTS A LOT OF PAIN, *DRIVING*, LYING DOWN AT FIRST AT NIGHT, MOVING AROUND AT NIGHT. Better: BEING STILL, T[place],. Disturbed sleep: YES. Previous history/Previous treatment: [facility] DECEMBER 2021 [address] BURGOS - TEMPORARY PAIN RELIEF ONLY - NO EFFECT ON ROM. PATIENT DENIES ANY HISTORY OF NECK PROBLEMS PRIOR TO OCTOBER 2020. NO SURGICAL CONSULTS. NO CHIROPRACTOR. ALTHOUGH SHE HAD PHYSICAL THERAPY IN DECEMBER/Jan SHE REPORTS IT WAS FOR HER L SHLD AND ELBOW NOT HER NECK. Dizziness: NO. Tinnitis: YES - CHRONIC. Nausea: YES - CHRONIC. Shortness of Breath: NO. Difficulty Swollowing: NO. Gait: NORMAL. Accidents: NO. Unexplained weight loss: NO. Imaging: NO CERVICAL MRI. OCTOBER 2021 NECK X-RAY: STUDY: X-RAY - CERVICAL SPINE. REASON FOR EXAM: Female, 70 years old. PAIN. TECHNIQUE: 2 view(s) of the cervical spine were obtained. COMPARISON: None. . FINDINGS: Odontoid is obscured by overlapping osseous structures on the AP view. The. odontoid appears thinned on the lateral view but no odontoid fracture is. noted. Normal cervical lordosis. Slight degenerative anterior subluxation of C4. on C5. Slight degenerative anterior subluxation of C7 on T1 and of T1-T2. Severe degenerative disc space narrowing at the C5/6 and C6/7 levels with. endplate sclerosis, small marginal osteophytes, minimal vacuum disc. phenomenon, and uncinate hypertrophy. Extensive cervical facet arthritis. No facet dislocation. No compression fracture or precervical soft tissue swelling. On the AP view, a 9 mm lobulated calcification is projected in the left. submandibular region, possibly a sialolith versus vascular calcification. Visualized upper lungs are clear. Visualized upper ribs are intact. The. visualized paranasal sinuses are clear. Epiglottis appears normal. . RAD/Cerv Spine 2 or 3 Views. IMPRESSION: Extensive cervical degenerative changes. No compression fracture or. precervical soft tissue swelling. . 9 millimeter lobulated calcification noted in the left submandibular region. on the AP view, possibly a sialolith versus atherosclerotic vascular. calcification. . Electronically Signed: Francois Arvizu MD. at 5:39 EDT. . PMH/ Recent major surgery: FIBROMYALGIA, R HIP BURSITIS, OSTEOPOROSIS, PRE-DIABETIC, R RCR - Objective Sitting Posture/Standing Posture: POOR. FH. RS'S. Active Correction of p osture: BETTER. Other Observations: INDEP GAIT AND TRANSFERS. Sensory deficit: SULMA UE LIGHT TOUCH SENSATION GROSSLY INTACT AND SYMMETRICAL. ROM deficit: SULMA UE'S WFL. Motor deficit: PATIENT IS R HAND DOMINANT WITH A RIGHT BUSINESS MGR STRENGTH OF 30 LBS AND LEFT 25 LBS. Reflexes: SULMA UE DTR'S 2/3. Dural Signs: POSITIVE SULMA UE'S. Cervical Mvmt Loss: Flex: NIL +. Pro: NIL +. Ext: MOD +. Ret: YANI +. RSB: MOD +. LSB: MOD +. R Rot: YANI +. L Rot: YANI +. PATIENT C/O INCREASED NECK PAIN WITH CERVICAL ROM TESTING ALL PLANES. Postural strength: POOR. ABLE TO PARTIAL CORRECT BUT NOT MAINTAIN. Palpation: TENDERNESS WITH LIGHT PALPATION OF THE UPPER THORACIC SPINE (PATIENT REPORTS THIS IS NOT NEW - MY SPINE HAS HAD SOME OUCHY POINTS FOR YEARS) CERVICAL SPINE, OCCIPUT AND SULMA CERVICAL MUSCULATURE. TREATMENT: NEUROMUSCULAR REEDUCATION - RETRAINING OF MVMT AND POSTURE FOR SITTING, LYING AND STANDING ACTIVITIES - Balance/Special Test Scores Oswestry Neck Score: 15 - Goals Goal 1:: DECREASE C/O NECK AND SULMA UE SX'S. Goal Time Frame: 4-6 Weeks Goal 2:: IMPROVE PERSONAL CARE, LIFTING, READING, DRIVING AND RECREATIONAL ACTIVITIES. Goal Time Frame: 4-6 Weeks Goal 3:: INSTRUCT IN PROPHYLAXIS Goal Time Frame: 4-6 Weeks - Anticipated Interventions Patient/Client Instruction: Educate patient on: Condition, Plan of Care, Risk Factors For the Purpose of:: To improve self management Therapeutic Exercise to Include: Strength training, Postural training, Flexibilty training, Neuromotor development, Scapular Strength/Stabilization For the Purpose of:: To decrease pain, To increase ROM, To improve muscle performance and motor function, To increase tolerance to activity/condition/position, To improve ability of physical actions for home/community/work/leisure Thank you for the opportunity to evaluate your patient. For Medicare and Medicare HMO plans, please review the plan of care and approve it. It will need to be FAXED BACK to us at [phone] for Medicare purposes. For Medicare only, by signing this I certify the plan of care. Please let me know if there are questions or concerns regarding this plan of care. Physician Signature: Date:
--- NOTE | 2022-04-02 13:27 | HP.PTREVAL_ITS ---
Aubrie Quiroz, KATERYNA-C, It has been my pleasure to treat NAHUM LUNA over the last 10 visits for OCCIPITAL NEURALGIA, CERVICAL SPOND/DDD/STENOSIS/RAD. Please see the progress note below for an update on the physical therapy plan of care! Subjective: PATIENT REPORTS SHE HOPES SHE CAN CONTINUE PT AND SHE IS CONSIDERING [place]. SHE REPORTS HER NECK ROM IS IMPROVING. SHE REPORTS HER HEADACHES HAVE IMPROVED TOO. Objective/Function: PATIENT WAS SEEN TODAY FOR RE-ASSESSMENT OF PROGRESS TOWARD THE SET PT GOALS AND THE NEED FOR FURTHER PHYSICAL THERAPY VS READINESS FOR DISCHARGE. PATIENT IS MAKING SLOW PROGRESS TOWARD ALL PT GOALS AND IS A GOOD CANDIDATE TO CONTINUE PT BASED ON PROGRESS MADE AND ROOM FOR FURTHR IMPROVEMENT ALONG WITH PAIN MGMT. PATIENT IS AGREEABLE. UPON EXAM TODAY: Cervical Mvmt Loss: Flex: NIL +. Pro: NIL +. Ext: MIN TO MOD +. Ret: MOD TO YANI +. RSB: MIN +. LSB: MOD +. R Rot: MOD +. L Rot: YANI +. PATIENT C/O INCREASED NECK PAIN WITH CERVICAL ROM TESTING ALL PLANES. Plan Plan: CP OR MH TO NECK NEEDED. STM TO SULMA CERVICAL MUSCULATURE. POSTURE ANGELI ECTION/STRENGTHENING, INSTRUCTION IN APPROPRIATE BODY MECHANICS AND ACTIVITY MODIFICATIONS. SULMA UE ROM, STRETCHING AND STRENGTHENING. HEP INSTRUCTION. Balance/Gait/Functional tests - Balance/Special Test Scores Oswestry Neck Score: 14 Goals Goal 1:: DECREASE C/O NECK AND SULMA UE SX'S. Goal Time Frame: 4-6 Weeks Goal Progress: Progressing Goal 2:: IMPROVE PERSONAL CARE, LIFTING, READING, DRIVING AND RECREATIONAL A CTIVITIES. Goal Time Frame: 4-6 Weeks Goal Progress: Progressing Goal 3:: INSTRUCT IN PROPHYLAXIS Goal Time Frame: 4-6 Weeks Goal Progress: Progressing Anticipated Interventions Patient/Client Instruction: Educate patient on: Condition, Plan of Care, Risk Factors For the Purpose of:: To improve self management Therapeutic Exercise to Include: Strength training, Postural training, F lexibilty training, Neuromotor development, Scapular Strength/Stabilization For the Purpose of:: To decrease pain, To increase ROM, To improve muscle performance and motor function, To increase tolerance to activity/condition/position, To improve ability of physical actions for home/community/work/leisure Please do not hesitate to contact me at [phone] by phone or if you have questions or concerns regarding this new plan of care! Sincerely, Eugenie Nelson PT, Cert MDT
== END 2022-05-11 19:00 | disposition home or self-care (01) ==
LOC: PT 13:00
PROVIDERS: PCP Family Medicine; Referring Provider Nurse Practitioner Family; Visit Provider Nurse Practitioner Family
DX: M54.81 Occipital neuralgia (principal); M47.22 Other spondylosis with radiculopathy, cervical region; M47.812 Spondylosis without myelopathy or radiculopathy, cervical region; M48.02 Spinal stenosis, cervical region; M46.92 Unspecified inflammatory spondylopathy, cervical region
CPT/HCPCS: 97112; 97140; 97162; 97164; 97530

== ENCOUNTER → 2022-05-29 | Outpatient (CLI) | payer MEDICARE, SELFPAY ==
--- NOTE | 2022-05-29 12:15 | BI_ITS ---
MAMMOGRAPHY - BILATERAL SCREENING REASON FOR EXAM: Female, 71 years old. Routine annual screening examination. PERTINENT HISTORY: Sister with breast cancer. Grandmother with breast cancer. TECHNIQUE: Digital bilateral breast tommy (3D mammographic acquisition) in the CC and MLO projections. 2-D mediolateral oblique (MLO) and craniocaudad (CC) views of both breasts were obtained. CAD: Full Field Digital Mammography with Computer Added Detection was performed. COMPARISON: Comparison is made with prior study 05/29/2021 and 04/29/2020. FINDINGS: Breast Composition: The breasts are extremely dense, which lowers the sensitivity of mammography. There are no dominant masses or suspicious calcifications. No other significant abnormalities are identified. There has been no significant change since the prior study. BI/SCRN MAMM (CAD)W/TOMMY BILAT IMPRESSION: Stable bilateral screening mammogram. Yearly follow-up mammogram recommended. (A) ASSESSMENT CATEGORY: BIRADS Category 2: Benign. A letter regarding these results will be sent to the patient by the facility within 30 days. Approximately 10% of breast cancers are not detected by mammography. A normal mammogram should not delay biopsy of a clinically suspicious abnormality. [id number] Electronically Signed: Ryan Crockett MD at 13:33 EST ,
== END | disposition home or self-care (01) ==
LOC: OPBI 12:14
PROVIDERS: PCP Family Medicine; Referring Provider Family Medicine; Visit Provider Family Medicine
DX: Z12.31 Encounter for screening mammogram for malignant neoplasm of breast (principal); Z80.3 Family history of malignant neoplasm of breast
CPT/HCPCS: 77063; 77067

== ENCOUNTER → 2022-06-02 | Outpatient (CLI) | payer MEDICARE, SELFPAY ==
--- NOTE | 2022-06-02 16:00 | MRI_ITS ---
EXAM: MR Spine Cervical W/O Contrast HISTORY: DDD TECHNIQUE: MR Spine Cervical W/O Contrast COMPARISON: XR cervical spine October 27, 2021. LIMITATIONS: None. FINDINGS: No acute fracture is identified. Mild disc bulge at C3-4 is identified without neural foraminal narrowing or central canal stenosis. At C4-5, mild disc bulge and facet/uncovertebral arthrosis results in mild bilateral neural foraminal narrowing without significant central canal stenosis. At C5-6, mild disc bulge and facet/uncovertebral arthrosis results in mild bilateral neural foraminal narrowing with minimal central canal stenosis. At C6-7, mild disc bulge and facet/uncovertebral joint arthrosis results in mild bilateral neural foraminal narrowing without significant central canal stenosis. Signal within the spinal cord is normal. No cord compression. MRI/Spine Cervical (Routine) IMPRESSION: No acute fracture. Mild multilevel degenerative disc disease. Electronically Signed: Severo Ham MD at 6:01 EST ,
== END | disposition home or self-care (01) ==
LOC: MRI 15:20
PROVIDERS: PCP Family Medicine; Referring Provider Anesthesiology Pain Medicine; Visit Provider Anesthesiology Pain Medicine
DX: M50.30 Other cervical disc degeneration, unspecified cervical region (principal); M48.02 Spinal stenosis, cervical region; M50.222 Other cervical disc displacement at C5-C6 level; M50.221 Other cervical disc displacement at C4-C5 level; M50.223 Other cervical disc displacement at C6-C7 level; M47.812 Spondylosis without myelopathy or radiculopathy, cervical region; M50.21 Other cervical disc displacement, high cervical region
CPT/HCPCS: 72141

== ENCOUNTER → 2022-08-12 | Outpatient (CLI) | payer MEDICARE, SELFPAY ==
[2022-08-12 11:06] LABS: Vitamin D,25 Hydroxy 59.3 ng/mL
[2022-08-12 11:23] LABS: ALB/GLOB Ratio 1.2 RATIO (0.9-2.4); AST(SGOT) 20 U/L (15-37); Alanine Aminotransfer ALT/SGPT 21 U/L (13-56); Alkaline Phosphatase 60 U/L (45-117); Anion Gap 6 (5-15); BUN 18 mg/dL (7-18); Chloride 108 mmol/L (98-107); Cholesterol 274 mg/dL (200); Creatinine, Serum 0.75 mg/dL (0.55-1.02); EST Glomerular Filtration Rate 80 mL/min (>60); Est Glom Filt Rate - Afr Amer 97 mL/min (>60); Globulin 3.4 g/dL (2.2-4.2); Glucose 108 mg/dL (74-106); High Density Lipoprotein 92 mg/dL; Potassium 3.7 mmol/L (3.5-5.1); Protein, Total 7.4 g/dL (6.4-8.2); Sodium Level 143 mmol/L (136-145); Triglycerides 108 mg/dL; Very Low Density Lipoprotein 22 mg/dL (5-40)
[2022-08-12 14:25] LABS: Hemoglobin A1c 5.8 % (3.8-5.6)
== END | disposition home or self-care (01) ==
LOC: MTLAB 08:03
PROVIDERS: PCP Family Medicine; Visit Provider Family Medicine
DX: R73.02 Impaired glucose tolerance (oral) (principal); E78.5 Hyperlipidemia, unspecified; M81.0 Age-related osteoporosis without current pathological fracture
CPT/HCPCS: 36415; 80053; 80061; 82306; 83036

== ENCOUNTER → 2022-11-05 | Outpatient (CLI) | payer MEDICARE, SELFPAY ==
[2022-11-05 10:14] LABS: Absolute Lymphocyte Count 1.39 X10^3/uL (0.83-4.51); Absolute Neutrophil Count 2.8 X10^3/uL (2.0-7.7); Basophil# 0.06 X10^3/uL; Basophil% 1.3 % (0-1); Eosinophil# 0.17 X10^3/uL; Eosinophils% 3.6 % (0-5); Hematocrit 44.7 % (37-47); Hemoglobin 13.9 g/dL (12.0-15.0); Lymphocyte # 1.39 X10^3/ul (0.83-4.51); Lymphocyte % 29.6 % (19-41); Mean Corp Hgb Conc 31.1 g/dL (32-36); Mean Corpuscular Hgb 29.9 pg (27.0-32.0); Mean Corpuscular Volume 96.1 fL (81-99); Mean Platelet Vol. 10.7 fl (6.2-12.0); Monocyte# 0.22 X10^3/uL; Monocyte% 4.7 % (0-10); NRBC Flagged by Analyzer 0 % (0-5); Neutrophil # 2.84 X10^3/uL (2.7-7.7); Neutrophil % 60.6 % (47-70); Platelet Count 200 K/mm3 (150-450); RBC Distribution Width CV 12.6 % (11.6-14.6); RBC Distribution Width SD 44.6 fl (35.1-43.9); Red Blood Count 4.65 M/mm3 (4.2-5.4); White Blood Count 4.7 K/mm3 (4.4-11.0)
[2022-11-05 10:28] LABS: ALB/GLOB Ratio 1.1 RATIO (0.9-2.4); AST(SGOT) 24 U/L (15-37); Alanine Aminotransfer ALT/SGPT 28 U/L (13-56); Albumin, Serum 3.9 g/dL (3.2-5.0); Alkaline Phosphatase 67 U/L (45-117); Anion Gap 4 (5-15); BUN 23 mg/dL (7-18); BUN/Creat Ratio 34.3 RATIO (10-20); Calcium,Total 8.7 mg/dL (8.5-10.1); Chloride 108 mmol/L (98-107); Cholesterol 163 mg/dL (200); Creatinine, Serum 0.67 mg/dL (0.55-1.02); EST Glomerular Filtration Rate 92 mL/min (>60); Est Glom Filt Rate - Afr Amer 111 mL/min (>60); Globulin 3.5 g/dL (2.2-4.2); Glucose 103 mg/dL (74-106); High Density Lipoprotein 86 mg/dL; Potassium 3.9 mmol/L (3.5-5.1); Protein, Total 7.4 g/dL (6.4-8.2); Sodium Level 141 mmol/L (136-145); Triglycerides 77 mg/dL; Very Low Density Lipoprotein 15 mg/dL (5-40)
[2022-11-05 10:34] LABS: Vitamin D,25 Hydroxy 79.8 ng/mL
[2022-11-05 10:38] LABS: Hemoglobin A1c 5.8 % (3.8-5.6)
== END | disposition home or self-care (01) ==
LOC: MTLAB 08:35
PROVIDERS: PCP Family Medicine; Referring Provider Family Medicine; Visit Provider Family Medicine
DX: E78.5 Hyperlipidemia, unspecified (principal); R73.02 Impaired glucose tolerance (oral); M81.0 Age-related osteoporosis without current pathological fracture
CPT/HCPCS: 36415; 80053; 80061; 82306; 83036; 85025

== ENCOUNTER 2023-03-05 10:13 | Outpatient (CLI) | payer MEDICARE, SELFPAY ==
[2023-03-05] MEDS: 0.9% NaCl Peripheral Flush Adult/Peds IV (10:40)
[2023-03-05] MEDS: Zoledronic Acid 5 MG 100 ML 300 MG IV (10:40)
[2023-03-05 10:48] VITALS: BP 150/76; PULSE 73; RESP 16; TEMP 35.8; O2SAT 98; BMI 26.9
[2023-03-05 11:10] VITALS: BP 151/70; PULSE 69; RESP 16; O2SAT 100
== END 2023-03-05 10:14 | disposition home or self-care (01) ==
LOC: MEDOUTP 10:14
PROVIDERS: PCP Family Medicine; Referring Provider Internal Medicine Endocrinology, Diabetes & Metabolism; Visit Provider Internal Medicine Endocrinology, Diabetes & Metabolism
DX: M81.0 Age-related osteoporosis without current pathological fracture (principal)
CPT/HCPCS: 96365; A4216; J3489

== ENCOUNTER → 2023-03-12 | Outpatient (CLI) | payer MEDICARE, SELFPAY ==
[2023-03-12 10:18] LABS: Absolute Lymphocyte Count 1.34 X10^3/uL (0.83-4.51); Absolute Neutrophil Count 2.7 X10^3/uL (2.0-7.7); Basophil# 0.05 X10^3/uL; Basophil% 1.1 % (0-1); Eosinophil# 0.18 X10^3/uL; Hematocrit 44.3 % (37-47); Hemoglobin 13.5 g/dL (12.0-15.0); Lymphocyte # 1.34 X10^3/ul (0.83-4.51); Lymphocyte % 29.7 % (19-41); Mean Corp Hgb Conc 30.5 g/dL (32-36); Mean Corpuscular Volume 95.3 fL (81-99); Mean Platelet Vol. 10.8 fl (6.2-12.0); Monocyte# 0.27 X10^3/uL; NRBC Flagged by Analyzer 0 % (0-5); Neutrophil # 2.66 X10^3/uL (2.7-7.7); Platelet Count 209 K/mm3 (150-450); RBC Distribution Width CV 13.2 % (11.6-14.6); RBC Distribution Width SD 46.5 fl (35.1-43.9); Red Blood Count 4.65 M/mm3 (4.2-5.4); White Blood Count 4.5 K/mm3 (4.4-11.0)
[2023-03-12 10:40] LABS: Hemoglobin A1c 5.8 % (3.8-5.6)
[2023-03-12 10:47] LABS: Vitamin D,25 Hydroxy 52.2 ng/mL
[2023-03-12 11:20] LABS: ALB/GLOB Ratio 1.1 RATIO (0.9-2.4); AST(SGOT) 23 U/L (15-37); Alanine Aminotransfer ALT/SGPT 34 U/L (13-56); Albumin, Serum 3.9 g/dL (3.2-5.0); Alkaline Phosphatase 76 U/L (45-117); Anion Gap 5 (5-15); BUN 20 mg/dL (7-18); BUN/Creat Ratio 21.6 RATIO (10-20); Calcium,Total 9.7 mg/dL (8.5-10.1); Chloride 107 mmol/L (98-107); Cholesterol 163 mg/dL (200); Creatinine, Serum 0.92 mg/dL (0.55-1.02); EST Glomerular Filtration Rate 63 mL/min (>60); Est Glom Filt Rate - Afr Amer 76 mL/min (>60); Globulin 3.4 g/dL (2.2-4.2); Glucose 108 mg/dL (74-106); High Density Lipoprotein 84 mg/dL; Potassium 4.1 mmol/L (3.5-5.1); Protein, Total 7.3 g/dL (6.4-8.2); Sodium Level 139 mmol/L (136-145); Triglycerides 78 mg/dL; Very Low Density Lipoprotein 16 mg/dL (5-40)
== END | disposition home or self-care (01) ==
LOC: MTLAB 07:42
PROVIDERS: PCP Family Medicine; Referring Provider Family Medicine; Visit Provider Family Medicine
DX: R73.02 Impaired glucose tolerance (oral) (principal); E78.5 Hyperlipidemia, unspecified; M81.0 Age-related osteoporosis without current pathological fracture
CPT/HCPCS: 36415; 80053; 80061; 82306; 83036; 85025

== ENCOUNTER → 2023-03-29 | Outpatient (CLI) | payer MEDICARE, SELFPAY ==
--- NOTE | 2023-03-29 08:49 | CDU_ITS ---
Reason For Study: Carotid Stenosis Rt. Velocities/BP Lt. Velocities/BP Prox CCA 104/19 cm/sec. Prox CCA 133/19 cm/sec. Mid CCA 86/20 cm/sec. Mid CCA 86/24 cm/sec. Dist CCA 81/20 cm/sec. Dist CCA 83/18 cm/sec. Prox ICA 54/15 cm/sec. Prox ICA 75/15 cm/sec. Mid ICA 66/20 cm/sec. Mid ICA 88/26 cm/sec. Dist ICA 91/31 cm/sec. Dist ICA 103/27 cm/sec. Rt. ICA/CCA = 1.1. Lt. ICA/CCA = 1.2. Prox ECA 76/7 cm/sec. Prox ECA 78/8 cm/sec. Rt. Vert. 51/13 cm/sec. Lt. Vert. 60/13 cm/sec. Right Extracranial There is heterogeneous, smooth atherosclerotic plaque noted in the right common carotid artery. There is heterogeneous, irregular atherosclerotic plaque noted in the right internal carotid artery. There is no significant atherosclerotic plaque noted in the right external carotid artery. Antegrade flow is noted in the right vertebral artery. Left Extracranial There is intimal thickening but no significant atherosclerotic plaque noted in the left common carotid artery. There is intimal thickening but no significant atherosclerotic plaque noted in the left internal carotid artery. There is no significant atherosclerotic plaque noted in the left external carotid artery. Antegrade flow is noted in the left vertebral artery. Procedure Carotid Duplex [id number]. This is a Carotid Duplex examination using B-mode, color flow and specral Doppler. Exam performed in department. VL/Carotid Duplex Ultrasound Interpretation Summary Mild (<50%) stenosis right extracranial internal carotid. Normal left extracranial internal carotid. Patent and antegrade vertebrals bilaterally. Ordering Physician: Masood Das Referring Physician: Masood Das Performed By: Ana Samuel, GARLAND, RVT
== END | disposition home or self-care (01) ==
LOC: CVS 08:47
PROVIDERS: PCP Family Medicine; Referring Provider Family Medicine; Visit Provider Family Medicine
DX: I65.21 Occlusion and stenosis of right carotid artery (principal)
CPT/HCPCS: 93880

== ENCOUNTER 2023-04-23 13:30 | Outpatient (RCR) | payer MEDICARE, SELFPAY ==
--- NOTE | 2023-03-29 14:24 | HP.PTEVAL_ITS ---
Patient's Visit Information Visit Information Visit Information: NAHUM LUNA is a 72 year old F referred to Physical Therapy by Dr. Masood Das MD with a diagnosis of Left RTC Tendinopathy. Date of Evaluation: 03/29/23 Physical Therapist: Emilia Johnson DPT Visit Plan Frequency: 2x /Week Duration: 4 Weeks Plan: Focus on Scapular Strength/Stabilization HEP Given IE: Posture, Bilateral ER without band, Mid Row GTB, LAE GTB Subjective Subjective: Patient reports that she has had impingement in the left shoulder for years- she normally has a cortisone injection and it settles down- this time it has not settled down. The shoulder is aggravated by movement and pressure like sleeping on it. Worst: 710 Eases: in a resting position, Tylenol Best: 1-07/31. It never really goes. When she is resting its more dull and achy but a ice pick pain when she is moving. Pain is located in the deltoid and sometimes in the bicipital groove ice pick pain- dull achy pain is all throughout the deltoid- no pain in the joint. She does have pain that radiates down to the elbow when the pain is at its worst- She has had neck pain for 3 years- so she is unsure what come from what. She has DDD in her spine- so she has chronic pain. She is going to Dr. 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 No N/T in her fingers from the shoulder. Right hand dominate. She has not had any x-rays or MRI of the shoulder. She feels the injection got her back to 90-95% better. She just has the lingering stabbing pain is still there. She does not do any exercises for her shoulder. She walks 5 days a week for 30-40 minutes- but no weight training. She does some computer work- and will take breaks when she feels like that bothers her. Sleep: disturbed- when she rolls over on it- it will bother her. PMHx/Meds: up to date from 01/15/23 visit to endocrinology. Objective Objective: Posture: Forward head, rounded shoulder- can correct with verbal and tactile cues but does not maintain Gait: no deviation noted- good arm swing and trunk rotation Palpation: tender along medial border of the scapula, paraspinal of the cervical and thoracic spine, infraspinatus, upper trap, bicipital groove, deltoid AROM: WFL in all planes with end range flexion, abd, IR behind the back and ER, Cervical: flexion/extn: WFL, SB and rotation: limited by 25 % with pain, Elbow/Wrist/Fingers: WFL Strength: Scap: poor, Shoulder Isometric: 4-/5 with pain in all directions, Elbow: 4-/5 with pain, Wrist: 5/5 Manufacturing Leader: fair Special Tests L Shoulder Drop Sign - IS Test: Positive L Shoulder Empty Can - SS: Positive L Shoulder Belly Press - SupScap: Positive L Shoulder Neer - Impingement: Positive L Shoulder Lombardi Sanchez - Impingement: Positive Balance/Special Test Scores Quick DASH Score: 56.8175 Goals Goal 1:: Patient will report participation in home exercise program activities a minimum of 5 days per week, as adjunct to skilled physical therapy intervention in preparation for independent home management upon discharge. Goal Time Frame: 4-6 Weeks Goal 2:: Patient will report an increase of 14 points on the Quick Dash to show minimal clinical significant difference on patients functional outcome measure. Goal Time Frame: 4-6 Weeks Goal 3:: Patient will maintain proper posture t/o tx session to demo increased scapular strength/stabilization to decrease impingement of the shoulder Goal Time Frame: 4-6 Weeks Goal 4:: Patient will report no pain for 1 week in the left shoulder to d ecreased limited participation in ADL's. Goal Time Frame: 4-6 Weeks Rehabilitation Potential Physical Therapy Diagnosis: Patient presents with hypomobility- she has decreased pain free UE ROM, scapular strength/stabilization and muscular endurance leading to poor posture and increased pain with ADL's. Rehabilitation Potential: Fair Anticipated Interventions Patient/Client Instruction: Educate patient on: Benefits of Fitness Program Therapeutic Exercise to Include: Strength training, Endurance training, Agility training, Body mechanics, Postural training, Flexibilty training, Neuromotor development, Passive ROM, Active ROM and Scapular Strength/Stabilization For the Purpose of:: To improve muscle performance and motor function Manual Therapy Techniques to Include: Soft tissue mobilization TENS: Yes Cryotherapy (ice pack, ice massage): Yes Thermo therapy (hot pack): Yes Ultrasound (thermal/non thermal): Yes Text: Thank you for the opportunity to evaluate your patient. For Medicare and Medicare O plans, please review the plan of care and approve it. It will need to be FAXED BACK to us at [phone] for Medicare purposes. For Medicare only, by signing this I certify the plan of care. Please let me know if there are questions or concerns regarding this plan of care. Physician Signature: Date:
--- NOTE | 2023-04-26 09:58 | HP.PTDCSUM ---
Discharge Summary D/C summary: It has been my pleasure to treat NAHUM LUNA referred by Dr. Masood Das MD, with the diagnosis of Left RTC Tendinopathy for a total of 8 visit(s). Discharge Date: 04/23/23 Please see the following information for a summary of their discharge status. Subjective Subjective: Pt reports that her left shoulder is much better. Pain less frequent and less intense. Occasional catches in certain position but not constant any longer. Pain Left shoulder: Pain Intensity (Out of 10): 0 Overall Improvement % Improvement: 98 Objective Objective/Function: Making steady progress with available range of motion. A little uncomfortable with abd/ER combination. Feels like she will be able to manage her shoulder pain with exercises at home. Goals Goal 1:: Patient will report participation in home exercise program activities a minimum of 5 days per week, as adjunct to skilled physical therapy intervention in preparation for independent home management upon discharge. Goal Progress: Goal Met Goal 2:: Patient will report an increase of 14 points on the Quick Dash to show minimal clinical significant difference on patients functional outcome measure. Goal Progress: Goal Met Goal 3:: Patient will maintain proper posture t/o tx session to demo increased scapular strength/stabilization to decrease impingement of the shoulder Goal Progress: Goal Met Goal 4:: Patient will report no pain for 1 week in the left shoulder to decreased limited participation in ADL's. Goal Progress: Goal Met Plan Plan: Focus on Scapular Strength/Stabilization D/C Information Discharge Comments: Pt. was seen for her R shoulder pain. Pt. is overall doing much better at this point in time. She is independent with her exercises and will be DC from PT at this point in time. She is competent with her shoulder strengthening exercises and has all of the bands and exercises to continue to progress. d/c sentence: If there are questions or concerns regarding this patient's physical therapy, please feel free to call me at [phone]. Thank you for the referral of this patient. Sincerely, Piyush Galvan, DPT Balance/Gait/Functional tests Balance/Special Test Scores Quick DASH Score: 2.2725 Improvement % Improvement: 98
== END 2023-04-23 19:00 | disposition home or self-care (01) ==
LOC: PT 13:30
PROVIDERS: PCP Family Medicine; Referring Provider Family Medicine; Visit Provider Family Medicine
DX: S46.002D Unspecified injury of muscle(s) and tendon(s) of the rotator cuff of left shoulder, subsequent encounter (principal)
CPT/HCPCS: 97110; 97162; 97164

== ENCOUNTER → 2023-06-01 | Outpatient (CLI) | payer MEDICARE, SELFPAY ==
--- NOTE | 2023-06-01 12:01 | BI_ITS ---
MAMMOGRAPHY - BILATERAL SCREENING REASON FOR EXAM: Female, 72 years old. Routine annual screening examination. PERTINENT HISTORY: Sister with breast cancer. Grandmother with breast cancer. Remote right excisional breast biopsy. TECHNIQUE: Digital bilateral breast tommy (3D mammographic acquisition) in the CC and MLO projections. 2-D mediolateral oblique (MLO) and craniocaudad (CC) views of both breasts were obtained. CAD: Full Field Digital Mammography with Computer Added Detection was performed. COMPARISON: Comparison is made with prior study of May 29, 2022 and May 29, 2021 FINDINGS: Breast Composition: The breasts are extremely dense, which lowers the sensitivity of mammography. There are no dominant masses or suspicious calcifications. No other significant abnormalities are identified. There has been no significant change since the prior study. BI/SCRN MAMM (CAD)W/TOMMY BILAT IMPRESSION: Stable bilateral screening mammogram. Yearly follow-up mammogram recommended. (A) ASSESSMENT CATEGORY: BIRADS Category 1: Negative. A letter regarding these results will be sent to the patient by the facility within 30 days. Approximately 10% of breast cancers are not detected by mammography. A normal mammogram should not delay biopsy of a clinically suspicious abnormality. [id number] Electronically Signed: Ryan Crockett MD at 12:49 EST ,
== END | disposition home or self-care (01) ==
LOC: OPBI 12:00
PROVIDERS: PCP Family Medicine; Referring Provider Family Medicine; Visit Provider Family Medicine
DX: Z12.31 Encounter for screening mammogram for malignant neoplasm of breast (principal); Z80.3 Family history of malignant neoplasm of breast
CPT/HCPCS: 77063; 77067

== ENCOUNTER → 2023-10-08 | Outpatient (CLI) | payer MEDICARE, SELFPAY ==
[2023-10-08 11:27] LABS: Absolute Lymphocyte Count 1.35 X10^3/uL (0.83-4.51); Absolute Neutrophil Count 2.1 X10^3/uL (2.0-7.7); Basophil# 0.05 X10^3/uL; Basophil% 1.2 % (0-1); Eosinophil# 0.22 X10^3/uL; Eosinophils% 5.5 % (0-5); Hematocrit 43.4 % (37-47); Hemoglobin 13.7 g/dL (12.0-15.0); Lymphocyte # 1.35 X10^3/ul (0.83-4.51); Lymphocyte % 33.5 % (19-41); Mean Corp Hgb Conc 31.6 g/dL (32-36); Mean Corpuscular Hgb 29.7 pg (27.0-32.0); Mean Corpuscular Volume 93.9 fL (81-99); Monocyte# 0.29 X10^3/uL; Monocyte% 7.2 % (0-10); NRBC Flagged by Analyzer 0 % (0-5); Neutrophil # 2.11 X10^3/uL (2.7-7.7); Neutrophil % 52.4 % (47-70); Platelet Count 175 K/mm3 (150-450); RBC Distribution Width CV 13.4 % (11.6-14.6); RBC Distribution Width SD 46.8 fl (35.1-43.9); Red Blood Count 4.62 M/mm3 (4.2-5.4)
[2023-10-08 11:39] LABS: ALB/GLOB Ratio 1.2 RATIO (0.9-2.4); AST(SGOT) 28 U/L (15-37); Alanine Aminotransfer ALT/SGPT 26 U/L (13-56); Albumin, Serum 3.8 g/dL (3.2-5.0); Alkaline Phosphatase 67 U/L (45-117); Anion Gap 5 (5-15); BUN 20 mg/dL (7-18); BUN/Creat Ratio 27.5 RATIO (10-20); Calcium,Total 8.9 mg/dL (8.5-10.1); Chloride 106 mmol/L (98-107); Cholesterol 138 mg/dL (200); Creatinine, Serum 0.73 mg/dL (0.55-1.02); EST Glomerular Filtration Rate 83 mL/min (>60); Est Glom Filt Rate - Afr Amer 101 mL/min (>60); Globulin 3.3 g/dL (2.2-4.2); Glucose 93 mg/dL (74-106); High Density Lipoprotein 70 mg/dL; Potassium 3.6 mmol/L (3.5-5.1); Protein, Total 7.1 g/dL (6.4-8.2); Sodium Level 140 mmol/L (136-145); Triglycerides 72 mg/dL; Very Low Density Lipoprotein 14 mg/dL (5-40)
[2023-10-08 11:42] LABS: Hemoglobin A1c 5.7 % (3.8-5.6)
[2023-10-08 11:43] LABS: Vitamin D,25 Hydroxy 44.2 ng/mL
== END | disposition home or self-care (01) ==
LOC: MTLAB 07:17
PROVIDERS: PCP Family Medicine; Referring Provider Family Medicine; Visit Provider Family Medicine
DX: M81.0 Age-related osteoporosis without current pathological fracture (principal); E78.5 Hyperlipidemia, unspecified; R73.02 Impaired glucose tolerance (oral)
CPT/HCPCS: 36415; 80053; 80061; 82306; 83036; 85025

== ENCOUNTER → 2023-10-15 | Outpatient (CLI) | payer MEDICARE, SELFPAY ==
--- NOTE | 2023-10-15 10:51 | RAD_ITS ---
EXAM: XR BILATERAL HIPS WITH PELVIS WHEN PERFORMED, 2 VIEWS CLINICAL INDICATION: pain TECHNIQUE: Frontal view of the bilateral hips with pelvis when performed. COMPARISON: No relevant prior studies available. FINDINGS: BONES/JOINTS: No acute abnormality. No significant DJD. SOFT TISSUES: Normal. No soft tissue swelling or gas. RAD/Hips B/L min 2 views w/ Pelvis IMPRESSION: No acute bone or joint abnormality Electronically Signed: Papi Barrera MD at 15:01 EDT ,
== END | disposition home or self-care (01) ==
LOC: MTRAD 10:51
PROVIDERS: PCP Family Medicine; Referring Provider Family Medicine; Visit Provider Family Medicine
DX: M25.551 Pain in right hip (principal)
CPT/HCPCS: 73521

== ENCOUNTER → 2023-10-29 | Outpatient (CLI) | payer MEDICARE, SELFPAY ==
--- NOTE | 2023-10-29 14:03 | RAD_ITS ---
INDICATION: attention to left occipital parietal area, palpable concavity EXAMINATION/TECHNIQUE: X-RAY - XR Skull Complete 5 Views COMPARISON: FINDINGS: CALVARIUM: No depressed skull fracture. No destructive or sclerotic abnormality observed. SOFT TISSUES: No soft tissue swelling or gas. SINUSES: No acute abnormality. RAD/Skull min 4 Views IMPRESSION: Unremarkable radiographs of the skull. Electronically Signed: Damion Lopez DO at 22:21 EDT ,
== END | disposition home or self-care (01) ==
LOC: MTRAD 14:03
PROVIDERS: PCP Family Medicine; Referring Provider Family Medicine; Visit Provider Family Medicine
DX: M95.2 Other acquired deformity of head (principal)
CPT/HCPCS: 70260

== ENCOUNTER 2023-11-25 14:30 | Outpatient (RCR) | payer MEDICARE, SELFPAY ==
--- NOTE | 2023-10-28 12:33 | HP.PTEVAL_ITS ---
Patient's Visit Information Visit Information Visit Information: NAHUM LUNA is a 72 year old F referred to Physical Therapy by Dr. Masood Das MD with a diagnosis of R hip pain. Date of Evaluation: 10/28/23 Physical Therapist: Reed Sibley, DPT, OCS, CSCS Visit Plan Frequency: 2x /Week Duration: 4-6 Weeks Plan: 2x/week for 4 weeks for 1. rollout and stretch ITB and psoas R and progress to HEPm hip mobs for leg pull and ir and flexion comfort. 2. strength hip and core and progress to HEP to complement home walking program IE: seated marching, seated hip abd and activitiy modificaition for HEP Subjective Subjective: R hip is my oldest problem, Has pain R groin and laterally gets bursitis. Hurts to lift leg flexed when it is flared up, pivotting hurts, getting in and out of car. It flares up a couple times since June and can last a month. Not sure what casued them, but sat a lot in June flare up. Went to gym once in and then it was just there. Walking and leg press is her workout along with bike. The second one may have been the trip home. Sleep is interrupted sometimes, hard to sleep on it and stiff and painful for a little bit in am until I walk it out. Has 34 steps bedroom to bathroom and they are mildly bothersome but better when moving. Has railing. Not employed, retired teacher. Hobbies include sewing reading and solitaire and walking. has to keep moving, Walks 1 mile per day due to pain, used to walk 3 miles. Has FM. Basic ADLs can be uncomfortable but getting done, Niece helps carrying gorceries. Pain R hip pain: Pain Intensity (Out of 10): 1 Pain Intensity Range: 0 and 4 Comment: stairs and sitting Objective Objective: Walks I into PT without antalgia or pain today, trasnfers I, steps reciprocally with one rail I. LB AROM WFL and without pain. reflexes 2/3 patella and achilles Sensation LE WNL to gross light touch. + R SUN and FADDIR hip strength is 3+ hip abd and ext and flexion, painful R hip flexiona nd abd. L is 3+ knees 4-/5, ankles 4/5 B. ITB and hip flexors are max tight with + ben test. Tender to palpation max R psoas and r trochanteric bursa area into ITB. Balance/Special Test Scores Lower Extremity Functional Score: 30 Goals Goal 1:: I appropriate HEpo to limit future problems Goal Time Frame: 4-6 Weeks Goal 2:: pain in hip 1/10 at worst adn 80% better Goal Time Frame: 4-6 Weeks Goal 3:: walk 2 miles without increased pain Goal Time Frame: 4-6 Weeks Goal 4:: LEFS 45 Goal Time Frame: 4-6 Weeks Goal 5:: sleep without waking due to pain Goal Time Frame: 4-6 Weeks Rehabilitation Potential Physical Therapy Diagnosis: loss of hip ROM, strength adn comfort effecting mobility. Rehabilitation Potential: Fair Anticipated Interventions Patient/Client Instruction: Educate patient on: Condition and Plan of Care For the Purpose of:: To decrease pain, To increase ROM, To improve nutrient delivery to tissue, To improve muscle performance and motor function, To increase tolerance to activity/condition/position, To improve ability of physical actions for home/community/work/leisure and To improve gait and locomotor functions Therapeutic Exercise to Include: Strength training, Flexibilty training, Gait and locomotor training, Passive ROM and Active ROM For the Purpose of:: To decrease pain, To increase ROM, To improve nutrient delivery to tissue and To improve muscle performance and motor function Manual Therapy Techniques to Include: Mobilization, Passive ROM and Soft tissue mobilization For the Purpose of:: To decrease pain and To increase ROM Cryotherapy (ice pack, ice massage): Yes For the Purpose of:: To decrease swelling/inflammation Text: Thank you for the opportunity to evaluate your patient. For Medicare and Medicare HMO plans, please review the plan of care and approve it. It will need to be FAXED BACK to us at [phone] for Medicare purposes. For Medicare only, by signing this I certify the plan of care. Please let me know if there are questions or concerns regarding this plan of care. Physician Signature: Date:
--- NOTE | 2023-11-25 15:10 | HP.PTDCSUM ---
Discharge Summary D/C summary: It has been my pleasure to treat NAHUM LUNA referred by Dr. Masood Das MD, with the diagnosis of R hip pain for a total of 7 visit(s). Discharge Date: 11/25/23 Please see the following information for a summary of their discharge status. Subjective Subjective: Worse than a week ago, hyusband got worse and taking care of him and moving. Is on feet 10 hrs per day and lifting and does not exercise. Not taking care f self. This is not the right time for therapy. To Dr. das in february. HEP going better when she gets it done. Overall pain 4/10 most days. Pain R hip pain: Pain Intensity (Out of 10): 4 Overall Improvement % Improvement: 10 Objective Objective/Function: Walking out today without antalgia. + SUN. Tenderness lateral hip persists. Subjectively no progress but no compliance either. Goals Goal 1:: I appropriate HEpo to limit future problems Goal Progress: noncompliant Goal 2:: pain in hip 1/10 at worst adn 80% better Goal Progress: Not Progressing Goal 3:: walk 2 miles without increased pain Goal Progress: Not Progressing Goal 4:: LEFS 45 Goal Progress: Not Progressing Goal 5:: sleep without waking due to pain Goal Progress: Not Progressing Plan Plan: d/c as this is not the right time for therapy for her and she wishes to visit doctor for next step D/C Information Discharge Comments: Pt to schedule with doctor due to lack of progress. d/c sentence: If there are questions or concerns regarding this patient's physical therapy, please feel free to call me at [phone]. Thank you for the referral of this patient. Sincerely, Reed Sibley, DPT, OCS, CSCS Balance/Gait/Functional tests Balance/Special Test Scores Lower Extremity Functional Score: 36 Improvement % Improvement: 10
== END 2023-11-25 19:00 | disposition home or self-care (01) ==
LOC: PT 14:30
PROVIDERS: PCP Family Medicine; Visit Provider Family Medicine
DX: M25.559 Pain in unspecified hip (principal)
CPT/HCPCS: 97110; 97140; 97161

== ENCOUNTER 2024-03-06 12:46 | Outpatient (CLI) | payer MEDICARE, SELFPAY ==
[2024-03-06 13:26] VITALS: BP 136/70; PULSE 83; RESP 16; TEMP 36.2; O2SAT 96; BMI 27.2
[2024-03-06] MEDS: 0.9% NaCl IVPB Med Flush (250 mL) 15 ML IV (13:33)
[2024-03-06] MEDS: 0.9% NaCl Peripheral Flush Adult/Peds IV (13:33)
[2024-03-06] MEDS: Zoledronic Acid 5 MG 100 ML 300 MG IV (13:41)
[2024-03-06 14:28] VITALS: BP 131/75; PULSE 77; RESP 16; TEMP 36.2; O2SAT 98
== END 2024-03-06 23:59 | disposition home or self-care (01) ==
LOC: MEDOUTP 12:47
PROVIDERS: PCP Family Medicine; Referring Provider Internal Medicine Endocrinology, Diabetes & Metabolism; Visit Provider Internal Medicine Endocrinology, Diabetes & Metabolism
DX: M81.0 Age-related osteoporosis without current pathological fracture (principal)
CPT/HCPCS: 96365; J7050; A4216; J3489

== ENCOUNTER → 2024-03-10 | Outpatient (CLI) | payer MEDICARE, SELFPAY ==
[2024-03-10 10:32] LABS: Absolute Lymphocyte Count 1.35 X10^3/uL (0.83-4.51); Absolute Neutrophil Count 2.7 X10^3/uL (2.0-7.7); Basophil# 0.06 X10^3/uL; Basophil% 1.3 % (0-1); Eosinophil# 0.21 X10^3/uL; Eosinophils% 4.6 % (0-5); Hematocrit 41.7 % (37-47); Lymphocyte # 1.35 X10^3/ul (0.83-4.51); Lymphocyte % 29.5 % (19-41); Mean Corp Hgb Conc 31.2 g/dL (32-36); Mean Corpuscular Volume 93.1 fL (81-99); Mean Platelet Vol. 10.7 fl (6.2-12.0); Monocyte# 0.27 X10^3/uL; Monocyte% 5.9 % (0-10); NRBC Flagged by Analyzer 0 % (0-5); Neutrophil # 2.67 X10^3/uL (2.7-7.7); Neutrophil % 58.5 % (47-70); Platelet Count 213 K/mm3 (150-450); RBC Distribution Width CV 13.5 % (11.6-14.6); RBC Distribution Width SD 46.1 fl (35.1-43.9); Red Blood Count 4.48 M/mm3 (4.2-5.4); White Blood Count 4.6 K/mm3 (4.4-11.0)
[2024-03-10 11:10] LABS: ALB/GLOB Ratio 1.2 RATIO (0.9-2.4); AST(SGOT) 22 U/L (15-37); Alanine Aminotransfer ALT/SGPT 22 U/L (13-56); Albumin, Serum 3.8 g/dL (3.2-5.0); Alkaline Phosphatase 71 U/L (45-117); Anion Gap 8 (5-15); BUN 20 mg/dL (7-18); BUN/Creat Ratio 27.9 RATIO (10-20); Calcium,Total 8.9 mg/dL (8.5-10.1); Chloride 108 mmol/L (98-107); Cholesterol 164 mg/dL (200); Creatinine, Serum 0.72 mg/dL (0.55-1.02); EST Glomerular Filtration Rate 84 mL/min (>60); Est Glom Filt Rate - Afr Amer 102 mL/min (>60); Globulin 3.2 g/dL (2.2-4.2); Glucose 101 mg/dL (74-106); High Density Lipoprotein 78 mg/dL; Sodium Level 140 mmol/L (136-145); Triglycerides 123 mg/dL; Very Low Density Lipoprotein 25 mg/dL (5-40)
[2024-03-10 11:26] LABS: Vitamin D,25 Hydroxy 59.3 ng/mL
[2024-03-10 11:31] LABS: Hemoglobin A1c 5.9 % (3.8-5.6)
== END | disposition home or self-care (01) ==
LOC: MTLAB 08:12
PROVIDERS: PCP Family Medicine; Referring Provider Family Medicine; Visit Provider Family Medicine
DX: R73.02 Impaired glucose tolerance (oral) (principal); M81.0 Age-related osteoporosis without current pathological fracture
CPT/HCPCS: 36415; 80053; 80061; 82306; 83036; 85025

== ENCOUNTER → 2024-03-28 | Outpatient (CLI) | payer MEDICARE, SELFPAY ==
--- NOTE | 2024-03-28 13:38 | CDU_ITS ---
Reason For Study: Carotid stenosis Rt. Velocities/BP Lt. Velocities/BP Prox CCA 75.9/15.4 cm/sec. Prox CCA 103.5/15.1 cm/sec. Mid CCA 89.1/17.3 cm/sec. Mid CCA 85.1/18.8 cm/sec. Dist CCA 81.5/20.1 cm/sec. Dist CCA 81.4/18.8 cm/sec. Prox ICA 74.9/12.6 cm/sec. Prox ICA 77.7/16.3 cm/sec. Mid ICA 67.4/22 cm/sec. Mid ICA 92.5/29.8 cm/sec. Dist ICA 90/27.4 cm/sec. Dist ICA 96.1/31.1 cm/sec. Rt. ICA/CCA = 1.01. Lt. ICA/CCA = 1.13. Prox ECA 89.1/8.8 cm/sec. Prox ECA 70.4/6.5 cm/sec. Rt. Vert. 47/13.9 cm/sec. Lt. Vert. 56.9/10.2 cm/sec. Right Extracranial There is homogeneous, smooth atherosclerotic plaque noted in the right common carotid artery. There is heterogeneous, irregular atherosclerotic plaque noted in the right internal carotid artery. There is intimal thickening but no significant atherosclerotic plaque noted in the right external carotid artery. Antegrade flow is noted in the right vertebral artery. Left Extracranial There is intimal thickening but no significant atherosclerotic plaque noted in the left common carotid artery. There is intimal thickening but no significant atherosclerotic plaque noted in the left internal carotid artery. There is intimal thickening but no significant atherosclerotic plaque noted in the left external carotid artery. Antegrade flow is noted in the left vertebral artery. Procedure Carotid Duplex 11946. This is a Carotid Duplex examination using B-mode, color flow and specral Doppler. Exam performed in department. VL/Carotid Duplex Ultrasound Interpretation Summary Mild (<50%) stenosis right extracranial internal carotid. Normal left extracranial internal carotid. Patent and antegrade vertebrals bilaterally. Ordering Physician: Masood Das Referring Physician: Masood Das Performed By: Magi Iverson RVT
== END | disposition home or self-care (01) ==
LOC: CVS 13:36
PROVIDERS: PCP Family Medicine; Referring Provider Family Medicine; Visit Provider Family Medicine
DX: I65.21 Occlusion and stenosis of right carotid artery (principal)
CPT/HCPCS: 93880

== ENCOUNTER → 2024-04-13 | Outpatient (CLI) | payer MEDICARE, SELFPAY ==
--- NOTE | 2024-04-13 10:28 | RAD_ITS ---
STUDY: X-RAY - LUMBAR SPINE REASON FOR EXAM: Female, 73 years old. pain TECHNIQUE: 2 view(s) of the lumbar spine were obtained. COMPARISON: None FINDINGS: Normal lumbar lordosis. Mild lumbar dextroscoliosis. There is a normal alignment of the vertebrae. Normal vertebral bodies with mild spurring at the endplates. Normal disc space heights. The soft tissue structures are unremarkable. Colonic fecal retention. RAD/Lumbar Spine 2 or 3 Views IMPRESSION: Mild degenerative changes and scoliosis. Electronically Signed: Damion Lopez DO at 16:46 EDT Reading Location ID and State: [facility] / [place] Tel [phone], Service support ,
== END | disposition home or self-care (01) ==
LOC: MTRAD 08:33
PROVIDERS: PCP Family Medicine; Referring Provider Family Medicine; Visit Provider Family Medicine
DX: M54.16 Radiculopathy, lumbar region (principal)
CPT/HCPCS: 72100

== ENCOUNTER → 2024-06-02 | Outpatient (CLI) | payer MEDICARE, SELFPAY ==
--- NOTE | 2024-06-02 12:16 | BI_ITS ---
MAMMOGRAPHY - BILATERAL SCREENING REASON FOR EXAM: Female, 73 years old. Routine annual screening examination. PERTINENT HISTORY: Sister with breast cancer. Grandmother with breast cancer. Prior right excisional breast biopsy. TECHNIQUE: Digital bilateral breast tommy (3D mammographic acquisition) in the CC and MLO projections. 2-D mediolateral oblique (MLO) and craniocaudad (CC) views of both breasts were obtained. CAD: Full Field Digital Mammography with Computer Added Detection was performed. COMPARISON: Comparison is made with prior study dated June 01, 2023 and May 29, 2022. FINDINGS: Breast Composition: The breasts are extremely dense, which lowers the sensitivity of mammography. There are no dominant masses or suspicious calcifications. No other significant abnormalities are identified. There has been no significant change since the prior study. BI/SCRN MAMM (CAD)W/TOMMY BILAT IMPRESSION: Stable bilateral screening mammogram. Yearly follow-up mammogram recommended. (A) ASSESSMENT CATEGORY: BIRADS Category 1: Negative. A letter regarding these results will be sent to the patient by the facility within 30 days. Approximately 10% of breast cancers are not detected by mammography. A normal mammogram should not delay biopsy of a clinically suspicious abnormality. [id number] Electronically Signed: Ryan Crockett MD at 12:56 EST ,
== END | disposition home or self-care (01) ==
LOC: OPBI 12:16
PROVIDERS: PCP Family Medicine; Referring Provider Family Medicine; Visit Provider Family Medicine
DX: Z12.31 Encounter for screening mammogram for malignant neoplasm of breast (principal); Z80.3 Family history of malignant neoplasm of breast
CPT/HCPCS: 77063; 77067

== ENCOUNTER → 2024-07-10 | Outpatient (CLI) | payer MEDICARE, SELFPAY ==
[2024-07-10 10:32] LABS: Absolute Lymphocyte Count 1.97 X10^3/uL (0.83-4.51); Absolute Neutrophil Count 3.2 X10^3/uL (2.0-7.7); Basophil% 1.7 % (0-1); Eosinophil# 0.41 X10^3/uL; Eosinophils% 6.8 % (0-5); Hematocrit 42.9 % (37-47); Hemoglobin 13.4 g/dL (12.0-15.0); Lymphocyte # 1.97 X10^3/ul (0.83-4.51); Lymphocyte % 32.8 % (19-41); Mean Corp Hgb Conc 31.2 g/dL (32-36); Mean Corpuscular Hgb 29.2 pg (27.0-32.0); Mean Corpuscular Volume 93.5 fL (81-99); Mean Platelet Vol. 10.9 fl (6.2-12.0); Monocyte# 0.37 X10^3/uL; Monocyte% 6.2 % (0-10); NRBC Flagged by Analyzer 0 % (0-5); Neutrophil # 3.15 X10^3/uL (2.7-7.7); Neutrophil % 52.3 % (47-70); Platelet Count 200 K/mm3 (150-450); RBC Distribution Width CV 13.4 % (11.6-14.6); RBC Distribution Width SD 45.9 fl (35.1-43.9); Red Blood Count 4.59 M/mm3 (4.2-5.4)
[2024-07-10 10:45] LABS: AST(SGOT) 24 U/L (15-37); Alanine Aminotransfer ALT/SGPT 25 U/L (13-56); Albumin, Serum 3.7 g/dL (3.2-5.0); Alkaline Phosphatase 71 U/L (45-117); Anion Gap 4 (5-15); BUN 16 mg/dL (7-18); BUN/Creat Ratio 19.1 RATIO (10-20); Calcium,Total 9.1 mg/dL (8.5-10.1); Chloride 107 mmol/L (98-107); Cholesterol 155 mg/dL (200); Creatinine, Serum 0.84 mg/dL (0.55-1.02); EST Glomerular Filtration Rate 70 mL/min (>60); Est Glom Filt Rate - Afr Amer 85 mL/min (>60); Globulin 3.6 g/dL (2.2-4.2); Glucose 116 mg/dL (74-106); High Density Lipoprotein 78 mg/dL; Potassium 4.2 mmol/L (3.5-5.1); Protein, Total 7.3 g/dL (6.4-8.2); Sodium Level 138 mmol/L (136-145); Triglycerides 120 mg/dL; Very Low Density Lipoprotein 24 mg/dL (5-40)
[2024-07-10 10:49] LABS: Vitamin D,25 Hydroxy 46.3 ng/mL
[2024-07-10 11:29] LABS: Hemoglobin A1c 5.9 % (3.8-5.6)
== END | disposition home or self-care (01) ==
LOC: MTLAB 08:38
PROVIDERS: PCP Family Medicine; Referring Provider Family Medicine; Visit Provider Family Medicine
DX: E78.5 Hyperlipidemia, unspecified (principal); R73.02 Impaired glucose tolerance (oral); M81.0 Age-related osteoporosis without current pathological fracture
CPT/HCPCS: 36415; 80053; 80061; 82306; 83036; 85025

== ENCOUNTER → 2024-07-27 | Outpatient (CLI) | payer MEDICARE, SELFPAY ==
--- NOTE | 2024-07-27 13:40 | BD_ITS ---
PROCEDURE: DEXA BONE DENSITY STUDY REASON FOR EXAM: 73-year-old female. Osteoporosis screening. TECHNIQUE: DEXA scan of the lumbar spine and both hips. COMPARISON: 11/05/2021 FINDINGS: T-SCORES Lumbar spine: T-score -1.8. Bone mineral density 0.847 g per cm2. (Prior T- score -2.6. 11.3% increased bone mineral density from the previous study.) Left hip: Left femoral neck T-score -0.7, total T-score -0.4. Bone mineral density 0.766 g per cm2. (Prior T-score -0.6. No significant interval change.) Right hip: Right femoral neck T-score -0.8, total T-score -0.6. Bone mineral density 0.760 g per cm2. (Prior T-score -0.7. No significant interval change.) FRAX* Results: 10 Year Probability of Fracture: Hip Fracture(1): 1.3% Major Osteoporotic Fracture(2): 9.4% *FRAX is a trademark of the [employer]'s [place] for Metabolic Bone Disease, World Health Organization (WHO) Collaborating [place]. 1-The 10-year probability of fracture may be lower than reported if the patient has received treatment. 2-Major Osteoporotic Fracture: Clinical Spine, Forearm, Hip or Shoulder. The T-scores are also available for review on the [facility] PACS or by accessing the [facility] electronic medical record. BD/Dexa Bone Density Study IMPRESSION: Osteopenia. Reading Location: [facility]
== END | disposition home or self-care (01) ==
LOC: OPBD 13:39
PROVIDERS: PCP Family Medicine; Referring Provider Family Medicine; Visit Provider Family Medicine
DX: M81.0 Age-related osteoporosis without current pathological fracture (principal)
CPT/HCPCS: 77080

== ENCOUNTER → 2024-08-25 | Outpatient (CLI) | payer MEDICARE, SELFPAY ==
--- NOTE | 2024-08-25 10:13 | NM_ITS ---
PROCEDURE: GASTRIC EMPTYING STUDY REASON FOR EXAM: Early Satiety. TECHNIQUE: Nuclear medicine solid phase gastric emptying study. RADIOPHARMACEUTICAL: Oral administration of 1.1 millicurie technetium 99 M sulfur colloid within oatmeal. COMPARISON: None. FINDINGS: % gastric emptying at select times as follows: 29.5 minutes 55%; 59.5 minutes 67%; Linear fit gastric emptying half-time 42 minutes. Raw data gastric emptying half-time 22.3 minutes. During the time of imaging, gastroesophageal reflux was identified early on. NM/Gastric Emptying Study IMPRESSION: 1. No evidence of delayed gastric emptying. 2. Gastroesophageal reflux. Reading Location: [id number]
== END | disposition home or self-care (01) ==
LOC: NM 10:12
PROVIDERS: PCP Family Medicine; Referring Provider Family Medicine; Visit Provider Family Medicine
DX: R68.81 Early satiety (principal)
CPT/HCPCS: 78264; A9541

== ENCOUNTER → 2024-09-13 | Outpatient (CLI) | payer MEDICARE, SELFPAY ==
--- NOTE | 2024-09-13 10:46 | US_ITS ---
PROCEDURE: HEAD/NECK SOFT TISSUE 09/13/2024 REASON FOR EXAM: 73-year-old female, TENDER LYMPH NODES OF LEFT SIDEx several months, the mass increases in size when eating. TECHNIQUE: Ultrasound targeted to the palpable abnormality at the area of palpable abnormality along the left mid neck at site of left submandibular gland. COMPARISON: MRI C-spine 06/02/2022. FINDINGS: The area of pain as directed by the patient along the left mid lateral neck corresponds with the left submandibular gland. The left submandibular gland measures 2.5 x 2.8 x 1.3 cm (for comparison the right gland measures 3.8 x 3.7 x 1.6 cm), with an area of irregular, hypoechoic lesion measuring 2.1 x 1.3 x 1.4 cm demonstrating internal vascularity. There is an additional nearby small calcified lesion measuring 0.7 x 0.7 x 0.4 cm. US/Head/Neck Soft Tissue IMPRESSION: Ill-defined left submandibular gland lesion with internal vascularity. Finding s are indeterminate but contain features concerning for neoplasm. CT or MRI neck is recommended for further evaluation. Reading Location: [id number]
== END | disposition home or self-care (01) ==
LOC: US 10:45
PROVIDERS: PCP Family Medicine; Referring Provider Family Medicine; Visit Provider Family Medicine
DX: R09.89 Other specified symptoms and signs involving the circulatory and respiratory systems (principal)
CPT/HCPCS: 76536

== ENCOUNTER → 2024-09-21 | Outpatient (CLI) | payer MEDICARE, SELFPAY ==
--- NOTE | 2024-09-21 15:53 | CT_ITS ---
PROCEDURE: SOFT TISSUE NECK WITH CONTRAST 09/21/2024 REASON FOR EXAM: SUBMANDIBULAR GLAND MASS TECHNIQUE: CT of the soft tissues of the neck from the orbits to the upper mediastinum with intravenous contrast. CONTRAST: VOLUME: 100 mL Omnipaque 350 gauge IV One or more dose reduction techniques were used (e.g., Automated exposure control, adjustment of the mA and/or kV according to patient size, use of iterative reconstruction technique). COMPARISON: None FINDINGS: Lymph nodes: No cervical lymphadenopathy by size, number or morphologic criteria. Small nonspecific lymph nodes are scattered throughout the neck. Aerodigestive tract: The oral cavity is partially obscured by artifact from dental amalgam. The nasal cavities, naso-oropharynx, pharyngeal mucosal space, laryngeal structures and infraglottic trachea are within normal limits. Major salivary glands: There is a 6 mm left submandibular gland sialolith (series 2, image 48, series 603, image 40). No dilation of Charly's duct. Thyroid gland: Thyroid gland is unremarkable. However, there is a 10 mm low- attenuation lesion posterior to the right thyroid lobe, likely a parathyroid nodule. Carotid space: Patent bilateral extracranial carotid and jugular systems. Intracranial contents: Imaged portions within normal limits. Paranasal sinuses, middle ears, mastoids: Clear. Orbits: Within normal limits. Bones: No suspicious osseous lesions in the imaged calvarium, skull base and spine. Normal cervicothoracic alignment. No significant spondylotic changes. Temporomandibular joints are maintained. Lungs: Emphysema within the imaged lung apices. CT/Soft Tissue Neck WITH Contrast IMPRESSION: 6 mm left submandibular gland sialolith without [place] duct dilation. [facility]
[2024-09-21 16:09] LABS: CREATININE FINGERSTICK < 1.0 mg/dL (0.55-1.02); EGFR FINGERSTICK > 60.0000 mL/min (>60)
== END | disposition home or self-care (01) ==
LOC: CT 15:42
PROVIDERS: PCP Family Medicine; Referring Provider Family Medicine; Visit Provider Family Medicine
DX: K11.8 Other diseases of salivary glands (principal)
CPT/HCPCS: 70491; Q9967

== ENCOUNTER → 2024-10-30 | Outpatient (CLI) | payer MEDICARE, SELFPAY ==
--- NOTE | 2024-10-30 11:45 | EKG12_ITS ---
Test Reason : PREOP Blood Pressure : */* mmHG Vent. Rate : 79 BPM Atrial Rate : 79 BPM P-R Int : 168 ms QRS Dur : 70 ms QT Int : 342 ms P-R-T Axes : 70 45 57 degrees QTcB Int : 392 ms Normal sinus rhythm Normal ECG Confirmed by Matthew Mcmullen ([id number]), technical editor JAVIER SAENZ ([id number]) on 10/31/2024 5:43:29 AM Referred By: Prem Zacarias Confirmed By: Matthew Mcmullen
[2024-10-30 13:31] LABS: Hematocrit 43.1 % (37-47); Hemoglobin 13.6 g/dL (12.0-15.0); Mean Corp Hgb Conc 31.6 g/dL (32-36); Mean Corpuscular Hgb 28.9 pg (27.0-32.0); Mean Corpuscular Volume 91.5 fL (81-99); Mean Platelet Vol. 10.2 fl (6.2-12.0); Platelet Count 240 K/mm3 (150-450); RBC Distribution Width CV 13.5 % (11.6-14.6); RBC Distribution Width SD 46.1 fl (35.1-43.9); Red Blood Count 4.71 M/mm3 (4.2-5.4); White Blood Count 5.1 K/mm3 (4.4-11.0)
[2024-10-30 13:58] LABS: Anion Gap 13 (5-15); BUN 13 mg/dL (4-19); BUN/Creat Ratio 16.8 RATIO (10-20); Calcium,Total 9.9 mg/dL (7.6-11.0); Carbon Dioxide 27.2 mmol/L (21.0-32.0); Chloride 101 mmol/L (98-108); Creatinine, Serum 0.77 mg/dL (0.70-1.20); EST Glomerular Filtration Rate 80 (>60); Glucose 83 mg/dL (70-99); Potassium 4.8 mmol/L (3.3-5.1); Sodium Level 140 mmol/L (133-145)
== END | disposition home or self-care (01) ==
LOC: PSN 11:44
PROVIDERS: PCP Family Medicine; Referring Provider Otolaryngology; Visit Provider Otolaryngology
DX: Z01.812 Encounter for preprocedural laboratory examination (principal); Z01.810 Encounter for preprocedural cardiovascular examination
CPT/HCPCS: 36415; 80048; 85027; 93005

== ENCOUNTER → 2024-11-22 | Outpatient (CLI) | payer MEDICARE, SELFPAY ==
--- NOTE | 2024-11-21 09:00 | SUBM_PTH ---
PATIENT: NAHUM LUNA LOC: [facility] U#:[id number] AGE/SX: 73/F ROOM: RE11/22/[address]: Dr. Prem Zacarias MD : [id number] BED: DIS: 11/22/2024 SPEC #: [id number] RECD: 11/22/24 15:06 STATUS: BRIAN RESania #: [id number] MILEY: 11/21/24 09:[address]: Prem Zacarias DEPT: SURGICAL PATHOLOGY RECD BY: Misael Peck ENTERED: 11/23/24 08:27 SP TYPE: SUBMAN GL CHARISMA DR: Dr. Masood Das MD Tissues: A - Salivary gland, NOS Procedures: Decalcification bone/plaque Surgery Specimen Level V HEADER OPERATION: Left submandibular gland excision PRE-OP DIAGNOSIS: Sialoadenitis, unspecified TISSUE SUBMITTED: A- Left submandibular gland MICROSCOPIC DIAGNOSIS A. Left submandibular gland, sialoadenitis, excision: * Chronic sialadenitis with sialolithiasis. MICROSCOPIC DESCRIPTION Slides are reviewed. GROSS DESCRIPTION A. Received in formalin in a container labeled with the patient's name, date of , and left submandibular gland is a 3.1 g and 3.2 x 2.3 x 1.5 cm unoriented lennon-brown fragment of lobulated soft tissue. The outer surface exhibits adherent lennon-yellow adipose tissue with scattered areas of cautery artifact. It is inked black, and serial sections reveal a 0.7 x 0.4 x 0.4 cm yellow, firm, calcified nodule which abuts the inked external surface. The remaining uninvolved parenchyma is lennon-brown with lennon-yellow possible fat replacement. No other nodules are identified. Employment Coordinator sections:A1-2. Soft tissue (including area adjacent to nodule)A3. Calcified nodule, following decalcification [facility] 11-23-2024 CPT:77871,52975
== END | disposition home or self-care (01) ==
LOC: LABSPEC 15:16
PROVIDERS: PCP Family Medicine; Referring Provider Otolaryngology; Visit Provider Otolaryngology
DX: K11.20 Sialoadenitis, unspecified (principal)
CPT/HCPCS: 88307; 88311

== ENCOUNTER → 2024-11-27 | Outpatient (CLI) | payer MEDICARE, SELFPAY ==
[2024-11-27 12:15] LABS: Absolute Lymphocyte Count 1.98 X10^3/uL (0.83-4.51); Absolute Neutrophil Count 2.9 X10^3/uL (2.0-7.7); Basophil# 0.06 X10^3/uL; Basophil% 1.1 % (0-1); Eosinophil# 0.29 X10^3/uL; Eosinophils% 5.2 % (0-5); Hematocrit 44.2 % (37-47); Hemoglobin 13.7 g/dL (12.0-15.0); Lymphocyte # 1.98 X10^3/ul (0.83-4.51); Lymphocyte % 35.6 % (19-41); Mean Corpuscular Hgb 28.8 pg (27.0-32.0); Mean Corpuscular Volume 92.9 fL (81-99); Mean Platelet Vol. 10.3 fl (6.2-12.0); Monocyte# 0.34 X10^3/uL; Monocyte% 6.1 % (0-10); NRBC Flagged by Analyzer 0 % (0-5); Neutrophil # 2.88 X10^3/uL (2.7-7.7); Neutrophil % 51.8 % (47-70); Platelet Count 221 K/mm3 (150-450); RBC Distribution Width CV 13.5 % (11.6-14.6); RBC Distribution Width SD 46.8 fl (35.1-43.9); Red Blood Count 4.76 M/mm3 (4.2-5.4); White Blood Count 5.6 K/mm3 (4.4-11.0)
[2024-11-27 12:54] LABS: ALB/GLOB Ratio 1.7 RATIO (0.9-2.4); AST(SGOT) 23 U/L (<=31); Alanine Aminotransfer ALT/SGPT 17 U/L (<=34); Albumin, Serum 4.3 g/dL (3.4-4.8); Alkaline Phosphatase 74 U/L (35-104); Anion Gap 12 (5-15); BUN 10 mg/dL (4-19); BUN/Creat Ratio 12.9 RATIO (10-20); Calcium,Total 9.2 mg/dL (7.6-11.0); Carbon Dioxide 26.1 mmol/L (21.0-32.0); Chloride 104 mmol/L (98-108); Cholesterol 158 mg/dL (<=200); Creatinine, Serum 0.76 mg/dL (0.70-1.20); EST Glomerular Filtration Rate 81 (>60); Globulin 2.6 g/dL (2.2-4.2); Glucose 116 mg/dL (70-99); High Density Lipoprotein 67 mg/dL; Low Density Lipoprotein Calc. 58 mg/dL; Protein, Total 6.9 g/dL (5.9-8.4); Sodium Level 142 mmol/L (133-145); Total Bilirubin 0.57 mg/dL (0.00-1.30); Triglycerides 166 mg/dL; Very Low Density Lipoprotein 33 mg/dL (5-40); cholesterol:hdl ratio screen 2.35
[2024-11-27 13:05] LABS: Hemoglobin A1c 6.2 % (<=5.6)
== END | disposition home or self-care (01) ==
LOC: MTLAB 10:23
PROVIDERS: PCP Family Medicine; Referring Provider Family Medicine; Visit Provider Family Medicine
DX: R73.02 Impaired glucose tolerance (oral) (principal); E78.5 Hyperlipidemia, unspecified
CPT/HCPCS: 36415; 80053; 80061; 83036; 85025

== ENCOUNTER 2025-03-06 13:39 | Outpatient (CLI) | payer MEDICARE, SELFPAY ==
[2025-03-06 13:47] VITALS: BP 147/66; PULSE 98; RESP 16; TEMP 35.9; O2SAT 94; BMI 29.0
[2025-03-06] MEDS: 0.9% NaCl IVPB Med Flush (100mL) 15 ML IV (13:51)
[2025-03-06 14:28] VITALS: BP 146/67; PULSE 80; RESP 14; TEMP 36.3; O2SAT 98
== END 2025-03-06 23:59 | disposition home or self-care (01) ==
LOC: MEDOUTP 13:39
PROVIDERS: PCP Family Medicine; Referring Provider Internal Medicine Endocrinology, Diabetes & Metabolism; Visit Provider Internal Medicine Endocrinology, Diabetes & Metabolism
DX: M81.0 Age-related osteoporosis without current pathological fracture (principal)
CPT/HCPCS: 96365; A4216; J3489

== ENCOUNTER → 2025-03-21 | Outpatient (CLI) | payer MEDICARE, SELFPAY ==
[2025-03-21 12:45] LABS: Hematocrit 42.1 % (37-47); Hemoglobin 13.0 g/dL (12.0-15.0); Immature Granulocytes Count 0.010 X10^3/uL (0.0-0.0); Mean Corp Hgb Conc 30.9 g/dL (32-36); Mean Corpuscular Volume 93.3 fL (81-99); Mean Platelet Vol. 10.5 fl (6.2-12.0); NRBC Flagged by Analyzer 0 % (0-5); Platelet Count 224 K/mm3 (150-450); RBC Distribution Width CV 13.6 % (11.6-14.6); RBC Distribution Width SD 46.6 fl (35.1-43.9); Red Blood Count 4.51 M/mm3 (4.2-5.4); White Blood Count 5.1 K/mm3 (4.4-11.0)
[2025-03-21 13:19] LABS: AST(SGOT) 28 U/L (<=31); Alanine Aminotransfer ALT/SGPT 22 U/L (<=34); Albumin, Serum 4.3 g/dL (3.4-4.8); Alkaline Phosphatase 68 U/L (35-104); Anion Gap 11 (5-15); BUN 12 mg/dL (4-19); BUN/Creat Ratio 15.1 RATIO (10-20); Calcium,Total 9.4 mg/dL (7.6-11.0); Carbon Dioxide 26.4 mmol/L (21.0-32.0); Chloride 104 mmol/L (98-108); Cholesterol 158 mg/dL (<=200); Globulin 2.5 g/dL (2.2-4.2); Glucose 116 mg/dL (70-99); Low Density Lipoprotein Calc. 55 mg/dL; Potassium 4.5 mmol/L (3.3-5.1); Triglycerides 126 mg/dL; Very Low Density Lipoprotein 25 mg/dL (5-40); Vitamin D,25 Hydroxy 46.0 ng/mL (30-100); cholesterol:hdl ratio screen 2.03
== END | disposition home or self-care (01) ==
LOC: MTLAB 10:43
PROVIDERS: PCP Family Medicine; Referring Provider Family Medicine; Visit Provider Family Medicine
DX: E78.5 Hyperlipidemia, unspecified (principal); M81.0 Age-related osteoporosis without current pathological fracture; R73.02 Impaired glucose tolerance (oral)
CPT/HCPCS: 36415; 80053; 80061; 82306; 83036; 85025

== ENCOUNTER → 2025-04-06 | Outpatient (CLI) | payer MEDICARE, SELFPAY ==
--- NOTE | 2025-04-06 08:28 | CDU_ITS ---
Reason For Study Reason For Study: CAROTID OCCLUSION AND STENOSIS Rt. Velocities/BP Lt. Velocities/BP Prox CCA 128.9/13.9 cm/sec. Prox CCA 126.0/23.0 cm/sec. Mid CCA 100.3/16.3 cm/sec. Mid CCA 89.1/17.9 cm/sec. Dist CCA 87.5/16.3 cm/sec. Dist CCA 94.1/20.4 cm/sec. Prox ICA 94.8/14.4 cm/sec. Prox ICA 77.2/18.3 cm/sec. Mid ICA 69.9/18.3 cm/sec. Mid ICA 107.6/30.9 cm/sec. Dist ICA 90.7/26.9 cm/sec. Dist ICA 129.5/38.2 cm/sec. Rt. ICA/CCA = 94.8/100.3=0.9. Lt. ICA/CCA = 129.5/89.1=1.5. Prox ECA 96.6/8.9 cm/sec. Prox ECA 72.3/4.8 cm/sec. Rt. Vert. 58.8/15.8 cm/sec. Lt. Vert. 61.4/9.8 cm/sec. Right Extracranial There is homogeneous, smooth atherosclerotic plaque noted in the right common carotid artery. There is heterogeneous, irregular atherosclerotic plaque noted in the right internal carotid artery. There is intimal thickening but no significant atherosclerotic plaque noted in the right external carotid artery. Antegrade flow is noted in the right vertebral artery. Left Extracranial There is homogeneous, smooth atherosclerotic plaque noted in the left common carotid artery. There is intimal thickening but no significant atherosclerotic plaque noted in the left internal carotid artery. There is homogeneous, smooth atherosclerotic plaque noted in the left external carotid artery. Antegrade flow is noted in the left vertebral artery. Procedure Carotid Duplex [id number]. This is a Carotid Duplex examination using B-mode, color flow and specral Doppler. Exam performed in department. VL/Carotid Duplex Ultrasound Interpretation Summary Mild (<50%) stenosis right extracranial internal carotid. Normal left extracranial internal carotid. Patent and antegrade vertebrals bilaterally. Ordering Physician: Masood Das Referring Physician: Masood Das Performed By: Lianna Acevedo RDCS, RVT
== END | disposition home or self-care (01) ==
LOC: CVS 08:25
PROVIDERS: PCP Family Medicine; Referring Provider Family Medicine; Visit Provider Family Medicine
DX: I65.21 Occlusion and stenosis of right carotid artery (principal)
CPT/HCPCS: 93880

== ENCOUNTER → 2025-06-20 | Outpatient (CLI) | payer MEDICARE, SELFPAY ==
--- NOTE | 2025-06-20 11:44 | BI_ITS ---
EXAM: SCRN MAMM (CAD)W/TOMMY BILAT DATE: 06/20/2025 CLINICAL HISTORY: F, Age 74 y/o , SCREENING TECHNIQUE: Procedure Code: [id number] Modality: MG Procedure: SCRN MAMM (CAD)W/TOMMY BILAT COMPARISON: Prior exam(s) dated 06/02/2024 and 06/01/2023 . FINDINGS: TISSUE DENSITY: The breasts are heterogeneously dense, which may obscure small masses. Bilateral Breast Mammographic Findings: Benign-appearing vascular calcifications, macrocalcifications and round microcalcifications are seen in both breasts. Stable nodular masslike densities are seen in both breasts. There are no suspicious masses, suspicious cluster of microcalcifications, architectural distortion or secondary signs of malignancy identified in either breast. BI/SCRN MAMM (CAD)W/TOMMY BILAT IMPRESSION: Benign screening mammogram OVERALL FINAL ASSESSMENT BI-RADS 2: BENIGN RECOMMENDATION: Routine annual follow-up in 1 Year Additional Recommendation none A letter with findings and recommendations will be mailed to the patient. Reading Location: [id number]
== END | disposition home or self-care (01) ==
PROVIDERS: PCP Family Medicine
DX: Z12.31 Encounter for screening mammogram for malignant neoplasm of breast (principal)
CPT/HCPCS: 77063; 77067